=== PATIENT | male | born 1960 | race African-American/Black ===

== ENCOUNTER 2018-12-29 16:38 | Inpatient (IN) | payer OTHER ==
[2018-12-29 18:22] VITALS: BMI 27.2
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
[2018-12-29] MEDS ORDERED: hydrOXYzine PAMOATE 25 MG CAPSULE (FP) PO PRN (19:42)
[2018-12-29] MEDS ORDERED: MELATONIN 5 MG TABLETS PO PRN (19:42)
[2018-12-29] MEDS ORDERED: MAGNESIUM HYDROX 2400MG/30ML ORAL SUSPENSION 30 ML CUP PO PRN (19:42)
[2018-12-29] MEDS ORDERED: MAGNESIUM CITRATE 300 ML BOTTLE PO PRN (19:42)
[2018-12-29] MEDS ORDERED: ACETAMINOPHEN 325 MG TABLET (FP) PO PRN ×2 (19:42)
[2018-12-29] MEDS ORDERED: MAG HYDROX/AL HYDROX/SIMETH 30 ML UNIT-DOSE CUP PO PRN (19:42)
[2018-12-29] MEDS ORDERED: METHOCARBAMOL 500 MG TABLET PO PRN (19:42)
[2018-12-29] MEDS ORDERED: IBUPROFEN 400 MG TABLET (FP) PO PRN (19:42)
[2018-12-29] MEDS ORDERED: BISMUTH SUBSALICYLATE 524 MG/30 ML UD PO PRN (19:42)
[2018-12-29] MEDS ORDERED: MENTHOL/PHENOL 1 EACH UD MM PRN (19:42)
[2018-12-29] MEDS ORDERED: diazePAM 5 MG TABLET PO PRN (19:42)
[2018-12-29] MEDS ORDERED: ALBUTEROL SO4 8 GM HFA INHALER IH PRN (19:49)
[2018-12-29] MEDS: diazePAM 5 MG TABLET PO SCH (21:41)
[2018-12-29] MEDS: THIAMINE HCL 100 MG TABLET (FP) PO SCH (21:41)
[2018-12-29] MEDS: BUDESONIDE/FORMETEROL FUMARATE 80/4.5 mcg INHALER IH SCH (22:52)
[2018-12-29] MEDS: BACITRACIN/POLYMYXIN B SULFATE 15 GM TUBE TP SCH (23:38)
[2018-12-30] MEDS: diazePAM 5 MG TABLET PO SCH ×3 (06:31→22:16)
[2018-12-30] MEDS: BACITRACIN/POLYMYXIN B SULFATE 15 GM TUBE TP SCH ×2 (09:39→22:16)
[2018-12-30] MEDS: PRENATAL VITAMINS W/ FOLIC ACID TABLET (FP) PO SCH (09:39)
[2018-12-30] MEDS: BUDESONIDE/FORMETEROL FUMARATE 80/4.5 mcg INHALER IH SCH ×2 (09:40→22:16)
--- NOTE | 2018-12-30 11:26 | PN ---
S CIWA - CIWA Score Nausea/Vomitin Muscle Tremors: 2 Anxiety: 2 Agitation: 2 Paroxysmal Sweats: No Perspiration Orientation: 0-Oriented Tacttile Disturbances: 1-Very Mild Itch/Numbness Auditory Disturbances: 0-None Visual Disturbances: 0-None Headache: 2-Mild CIWA-Ar Total Score: 11 BHS Progress Note (SOAP) Subjective: alert,irritable,anxious,interrupted sleep,tremor Objective: 12/30/18 11:24 Vital Signs Temperature 97.9 F 12/30/18 09:34 Pulse Rate 78 12/30/18 09:34 Respiratory Rate 18 12/30/18 09:34 Blood Pressure 107/62 12/30/18 09:34 O2 Sat by Pulse Oximetry (%) Assessment: 12/30/18 11:26 withdrawal symptom 12/30/18 11:26 labs pending Plan: withdrawal symptom valium regimen
[2018-12-30] MEDS: THIAMINE HCL 100 MG TABLET (FP) PO SCH (22:16)
[2018-12-31] MEDS: diazePAM 5 MG TABLET PO SCH ×2 (06:45→17:56)
[2018-12-31] MEDS: PRENATAL VITAMINS W/ FOLIC ACID TABLET (FP) PO SCH (10:17)
[2018-12-31] MEDS: BACITRACIN/POLYMYXIN B SULFATE 15 GM TUBE TP SCH ×2 (10:17→22:23)
[2018-12-31] MEDS: BUDESONIDE/FORMETEROL FUMARATE 80/4.5 mcg INHALER IH SCH ×2 (10:17→22:23)
--- NOTE | 2018-12-31 11:24 | PN ---
S CIWA - CIWA Score Nausea/Vomitin-No Nausea/No Vomiting Muscle Tremors: 1-None Visible, but [place] Anxiety: 1-Mildly Anxious Agitation: 1-Slight > Activity Paroxysmal Sweats: No Perspiration Orientation: 0-Oriented Tacttile Disturbances: 0-None Auditory Disturbances: 0-None Visual Disturbances: 0-None Headache: 1-Very Mild CIWA-Ar Total Score: 4 BHS Progress Note (SOAP) Subjective: alert,irritable,anxious, Objective: 12/31/18 11:23 Vital Signs Temperature 98.2 F 12/31/18 09:47 Pulse Rate 79 12/31/18 09:47 Respiratory Rate 18 12/31/18 09:47 Blood Pressure 105/58 L 12/31/18 09:47 O2 Sat by Pulse Oximetry (%) Assessment: 12/31/18 11:23 withdrawal symptom labs pending Plan: continue detox valium regimen,labs pending,,discharge in am
[2018-12-31 14:42] LABS: HEMATOCRIT 41.4 % (35.4-49); HEMOGLOBIN 13.4 GM/dL (11.7-16.9); MCH 28.4 pg (25.7-33.7); MCHC 32.4 g/dl (32.0-35.9); MEAN CELL VOLUME 87.9 fl (80-96); MEAN PLT VOLUME 9.2 fl (7.5-11.1); PLATELET COUNT 278 K/MM3 (134-434); RBC 4.71 M/mm3 (4.00-5.60); RDW 14.4 % (11.9-15.9); WHITE BLOOD COUNT 6.8 K/mm3 (4.0-10.0)
[2018-12-31 14:56] LABS: BILIRUBIN,TOTAL 0.5 mg/dL (0.2-1); BLOOD UREA NITROGEN 10.6 mg/dL (7-18); CALCIUM 8.9 mg/dL (8.5-10.1); CREATININE 0.9 mg/dL (0.55-1.3); POTASSIUM 4.7 mmol/L (3.5-5.1); TOT PROT 6.1 g/dl (6.4-8.2)
[2018-12-31] MEDS: THIAMINE HCL 100 MG TABLET (FP) PO SCH (22:24)
[2019-01-01] MEDS ORDERED: diazePAM 5 MG TABLET PO ONE (06:00)
--- NOTE | 2019-01-01 08:59 | DS ---
[facility] Detox Discharge Summary Admission Date: 12/29/18 Discharge Date: 01/01/19 - History Present History: Alcohol Dependence - Physical Exam Results Vital Signs: Vital Signs Temperature 97.7 F 01/01/19 07:08 Pulse Rate 61 01/01/19 07:08 Respiratory Rate 18 01/01/19 07:08 Blood Pressure 100/65 01/01/19 07:08 O2 Sat by Pulse Oximetry (%) - Treatment Hospital Course: Detox Protocol Followed, Detoxed Safely, Responded well, Discharged Condition Good - Medication Discharge Medications: Ambulatory Orders Salmeterol/Fluticasone [Advair 250Mcg/50Mcg -] 1 inh IH BID #1 inh 09/29/12 Albuterol Sulfate Inhaler - [Ventolin HFA Inhaler -] 2 inh IH Q4H PRN #1 canister 04/04/14 - Diagnosis (1) Alcohol dependence Current Visit: Yes Status: Chronic (2) Asthma Current Visit: No Status: Chronic (3) COPD (chronic obstructive pulmonary disease) Current Visit: No Status: Chronic (4) Nicotine dependence Current Visit: Yes Status: Chronic - AMA Did Patient Leave Against Medical Advice: No
[2019-01-01] MEDS: BUDESONIDE/FORMETEROL FUMARATE 80/4.5 mcg INHALER IH SCH (10:19)
[2019-01-01] MEDS: PRENATAL VITAMINS W/ FOLIC ACID TABLET (FP) PO SCH (10:19)
[2019-01-01] MEDS: BACITRACIN/POLYMYXIN B SULFATE 15 GM TUBE TP SCH (10:19)
[2019-01-01 17:06] VITALS: BP 131/82; PULSE 73; TEMP 98.1
== END 2019-01-01 17:08 | disposition other institution (70) | DRG 775 ==
LOC: YASAS 16:38 → Y6N 20:37
PROVIDERS: ADMIT Allergy & Immunology; ATTEND Allergy & Immunology
PROC: HZ2ZZZZ Detoxification Services for Substance Abuse Treatment (ICD-10-PCS; principal; 2018-12-29)
DX: F10.230 Alcohol dependence with withdrawal, uncomplicated (principal); F12.20 Cannabis dependence, uncomplicated; F17.210 Nicotine dependence, cigarettes, uncomplicated; J44.9 Chronic obstructive pulmonary disease, unspecified; J45.998 Other asthma; Z87.820 Personal history of traumatic brain injury; Z88.0 Allergy status to penicillin; Z91.013 Allergy to seafood
CPT/HCPCS: 36415; 80053; 85027; 86593

== ENCOUNTER 2019-01-01 17:16 | Inpatient (IN) | payer OTHER ==
[2019-01-01] MEDS ORDERED: MAGNESIUM HYDROX 2400MG/30ML ORAL SUSPENSION 30 ML CUP PO PRN (19:34)
[2019-01-01] MEDS ORDERED: hydrOXYzine PAMOATE 50 MG CAPSULE (FP) PO PRN (19:34)
[2019-01-01] MEDS ORDERED: P-EPHED 60MG/TRIPROLIDI 2.5MG TABLET PO PRN (19:34)
[2019-01-01] MEDS ORDERED: MAGNESIUM CITRATE 300 ML BOTTLE PO PRN (19:34)
[2019-01-01] MEDS ORDERED: IBUPROFEN 400 MG TABLET (FP) PO PRN (19:34)
[2019-01-01] MEDS ORDERED: guaiFENesin 200 MG/10 ML 10 ML UNIT-DOSE CUPS PO PRN (19:34)
[2019-01-01] MEDS ORDERED: MENTHOL/PHENOL 1 EACH UD MM PRN (19:34)
[2019-01-01] MEDS ORDERED: MAG HYDROX/AL HYDROX/SIMETH 30 ML UNIT-DOSE CUP PO PRN (19:34)
[2019-01-01] MEDS ORDERED: LOPERAMIDE HCL 2 MG CAPSULE PO PRN (19:34)
[2019-01-01] MEDS: THIAMINE HCL 100 MG TABLET (FP) PO SCH (21:01)
[2019-01-01] MEDS ORDERED: MELATONIN 5 MG TABLETS PO PRN (22:00)
[2019-01-02] MEDS: PRENATAL VITAMINS W/ FOLIC ACID TABLET (FP) PO SCH (09:50)
[2019-01-02] MEDS: THIAMINE HCL 100 MG TABLET (FP) PO SCH (21:08)
[2019-01-03] MEDS: ACETAMINOPHEN 325 MG TABLET (FP) PO PRN (09:30)
[2019-01-03] MEDS: PRENATAL VITAMINS W/ FOLIC ACID TABLET (FP) PO SCH (09:30)
[2019-01-03] MEDS: THIAMINE HCL 100 MG TABLET (FP) PO SCH (21:04)
[2019-01-04] MEDS: PRENATAL VITAMINS W/ FOLIC ACID TABLET (FP) PO SCH (10:25)
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
[2019-01-04] MEDS: THIAMINE HCL 100 MG TABLET (FP) PO SCH (21:04)
[2019-01-05] MEDS: PRENATAL VITAMINS W/ FOLIC ACID TABLET (FP) PO SCH (10:36)
[2019-01-05] MEDS: THIAMINE HCL 100 MG TABLET (FP) PO SCH (21:03)
[2019-01-06] MEDS: PRENATAL VITAMINS W/ FOLIC ACID TABLET (FP) PO SCH (10:01)
[2019-01-06] MEDS: THIAMINE HCL 100 MG TABLET (FP) PO SCH (21:05)
[2019-01-07] MEDS: ACETAMINOPHEN 325 MG TABLET (FP) PO PRN (10:07)
[2019-01-07] MEDS: PRENATAL VITAMINS W/ FOLIC ACID TABLET (FP) PO SCH (10:07)
[2019-01-07] MEDS: THIAMINE HCL 100 MG TABLET (FP) PO SCH (21:01)
[2019-01-08] MEDS: ACETAMINOPHEN 325 MG TABLET (FP) PO PRN (09:41)
[2019-01-08] MEDS: PRENATAL VITAMINS W/ FOLIC ACID TABLET (FP) PO SCH (09:41)
[2019-01-08] MEDS: THIAMINE HCL 100 MG TABLET (FP) PO SCH (21:04)
[2019-01-09] MEDS: PRENATAL VITAMINS W/ FOLIC ACID TABLET (FP) PO SCH (10:27)
[2019-01-09] MEDS: THIAMINE HCL 100 MG TABLET (FP) PO SCH (21:05)
[2019-01-10] MEDS: PRENATAL VITAMINS W/ FOLIC ACID TABLET (FP) PO SCH (10:00)
[2019-01-10] MEDS: ACETAMINOPHEN 325 MG TABLET (FP) PO PRN (10:00)
[2019-01-10] MEDS: THIAMINE HCL 100 MG TABLET (FP) PO SCH (21:02)
[2019-01-11] MEDS: PRENATAL VITAMINS W/ FOLIC ACID TABLET (FP) PO SCH (10:13)
[2019-01-11] MEDS: ACETAMINOPHEN 325 MG TABLET (FP) PO PRN (10:14)
[2019-01-11] MEDS: THIAMINE HCL 100 MG TABLET (FP) PO SCH (21:05)
[2019-01-12 06:57] VITALS: BP 99/65; PULSE 68; TEMP 98
[2019-01-12] MEDS: PRENATAL VITAMINS W/ FOLIC ACID TABLET (FP) PO SCH (09:57)
[2019-01-12] MEDS: ACETAMINOPHEN 325 MG TABLET (FP) PO PRN (09:59)
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
[2019-01-12] MEDS ORDERED: ALBUTEROL SO4 8 GM HFA INHALER IH PRN (13:16)
[2019-01-12] MEDS: BUDESONIDE/FORMETEROL FUMARATE 80/4.5 mcg INHALER IH SCH (22:04)
[2019-01-12] MEDS: THIAMINE HCL 100 MG TABLET (FP) PO SCH (22:04)
--- NOTE | 2019-01-13 09:21 | PN ---
[facility] Progress Note Note: Pt left the unit unescorted before I had a chance to see him. d/c order and summary done yesterday
[2019-01-13] MEDS: PRENATAL VITAMINS W/ FOLIC ACID TABLET (FP) PO SCH (10:48)
[2019-01-13] MEDS: BUDESONIDE/FORMETEROL FUMARATE 80/4.5 mcg INHALER IH SCH (10:49)
== END 2019-01-13 08:45 | disposition home or self-care (01) | DRG 772 ==
LOC: YASAS 17:16 → Y5N 17:18
PROVIDERS: ADMIT Neuromusculoskeletal Medicine & OMM; ATTEND Neuromusculoskeletal Medicine & OMM
PROC: HZ42ZZZ Group Counseling for Substance Abuse Treatment, Cognitive-Behavioral (ICD-10-PCS; principal; 2019-01-01)
DX: F10.20 Alcohol dependence, uncomplicated (principal); F17.210 Nicotine dependence, cigarettes, uncomplicated; J44.9 Chronic obstructive pulmonary disease, unspecified; J45.998 Other asthma; Z87.19 Personal history of other diseases of the digestive system; Z88.0 Allergy status to penicillin; Z91.018 Allergy to other foods

== ENCOUNTER 2019-01-25 10:32 | Inpatient (IN) | payer OTHER ==
[2019-01-25 11:23] VITALS: BMI 27.5
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
[2019-01-25] MEDS ORDERED: MAG HYDROX/AL HYDROX/SIMETH 30 ML UNIT-DOSE CUP PO PRN (11:49)
[2019-01-25] MEDS ORDERED: MELATONIN 5 MG TABLETS PO PRN (11:49)
[2019-01-25] MEDS ORDERED: hydrOXYzine PAMOATE 25 MG CAPSULE (FP) PO PRN (11:49)
[2019-01-25] MEDS ORDERED: MAGNESIUM HYDROX 2400MG/30ML ORAL SUSPENSION 30 ML CUP PO PRN (11:49)
[2019-01-25] MEDS ORDERED: ACETAMINOPHEN 325 MG TABLET (FP) PO PRN ×2 (11:49)
[2019-01-25] MEDS ORDERED: BISMUTH SUBSALICYLATE 524 MG/30 ML UD PO PRN (11:49)
[2019-01-25] MEDS ORDERED: MENTHOL/PHENOL 1 EACH UD MM PRN (11:49)
[2019-01-25] MEDS ORDERED: MAGNESIUM CITRATE 300 ML BOTTLE PO PRN (11:49)
[2019-01-25] MEDS ORDERED: IBUPROFEN 400 MG TABLET (FP) PO PRN (11:49)
[2019-01-25] MEDS ORDERED: METHOCARBAMOL 500 MG TABLET PO PRN (11:49)
[2019-01-25] MEDS ORDERED: LORazepam 1 MG TABLET PO PRN (11:49)
[2019-01-25] MEDS ORDERED: ALBUTEROL SO4 8 GM HFA INHALER IH PRN (11:51)
[2019-01-25] MEDS: LORazepam 2 MG TABLET PO SCH ×3 (12:35→22:34)
[2019-01-25 15:50] LABS: ALBUMIN 3.7 g/dl (3.4-5.0); BILIRUBIN,TOTAL 0.6 mg/dL (0.2-1); BLOOD UREA NITROGEN 15.5 mg/dL (7-18); CALCIUM 8.4 mg/dL (8.5-10.1); CREATININE 1.2 mg/dL (0.55-1.3); HEMATOCRIT 41.5 % (35.4-49); HEMOGLOBIN 13.6 GM/dL (11.7-16.9); MCH 28.3 pg (25.7-33.7); MCHC 32.7 g/dl (32.0-35.9); MEAN CELL VOLUME 86.5 fl (80-96); MEAN PLT VOLUME 9.6 fl (7.5-11.1); PLATELET COUNT 215 K/MM3 (134-434); POTASSIUM 4.1 mmol/L (3.5-5.1); RDW 14.8 % (11.9-15.9); TOT PROT 6.9 g/dl (6.4-8.2); WHITE BLOOD COUNT 5.8 K/mm3 (4.0-10.0)
[2019-01-25] MEDS: THIAMINE HCL 100 MG TABLET (FP) PO SCH (22:34)
[2019-01-25] MEDS: BUDESONIDE/FORMETEROL FUMARATE 80/4.5 mcg INHALER IH SCH (22:37)
[2019-01-26] MEDS: LORazepam 2 MG TABLET PO SCH ×4 (06:32→22:08)
[2019-01-26] MEDS: BUDESONIDE/FORMETEROL FUMARATE 80/4.5 mcg INHALER IH SCH ×2 (11:15→22:09)
[2019-01-26] MEDS: PRENATAL VITAMINS W/ FOLIC ACID TABLET (FP) PO SCH (11:15)
[2019-01-26] MEDS: NICOTINE 7 MG/24 HOURS TOPICAL PATCH TD SCH (11:15)
--- NOTE | 2019-01-26 11:28 | PN ---
S CIWA - CIWA Score Nausea/Vomitin-No Nausea/No Vomiting Muscle Tremors: 3 Anxiety: 2 Agitation: 2 Paroxysmal Sweats: 3 Orientation: 0-Oriented Tacttile Disturbances: 0-None Auditory Disturbances: 0-None Visual Disturbances: 0-None Headache: 0-None Present CIWA-Ar Total Score: 10 S Progress Note (SOAP) Subjective: tired sweats body aches interrupted sleep Objective: 01/26/19 11:27 Vital Signs Temperature 97.7 F 01/26/19 09:22 Pulse Rate 66 01/26/19 09:22 Respiratory Rate 19 01/26/19 09:22 Blood Pressure 131/81 01/26/19 09:22 O2 Sat by Pulse Oximetry (%) Laboratory Tests 01/25/19 01/25/19 01/25/19 12:00 12:00 12:00 WBC 5.8 RBC 4.80 Hgb 13.6 Hct 41.5 MCV 86.5 MCH 28.3 MCHC 32.7 RDW 14.8 Plt Count 215 D MPV 9.6 Sodium 143 Potassium 4.1 Chloride 109 H Carbon Dioxide 25 Anion Gap 10 BUN 15.5 Creatinine 1.2 Est GFR (CKD-EPI)AfAm 76.25 Est GFR (CKD-EPI)NonAf 65.79 Random Glucose 89 Calcium 8.4 L Total Bilirubin 0.6 AST 24 ALT 29 Alkaline Phosphatase 72 Total Protein 6.9 Albumin 3.7 RPR Titer Nonreactive aaox3 ambulating no acute distress Assessment: 01/26/19 11:27 withdrawal sx Plan: continue detox increase fluids
[2019-01-26] MEDS: THIAMINE HCL 100 MG TABLET (FP) PO SCH (22:08)
[2019-01-27] MEDS: LORazepam 1 MG TABLET PO SCH ×4 (06:32→22:15)
--- NOTE | 2019-01-27 10:12 | PN ---
S CIWA - CIWA Score Nausea/Vomitin-No Nausea/No Vomiting Muscle Tremors: 3 Anxiety: 1-Mildly Anxious Agitation: 2 Paroxysmal Sweats: 1-Minimal Palms Moist Orientation: 0-Oriented Tacttile Disturbances: 0-None Auditory Disturbances: 0-None Visual Disturbances: 0-None Headache: 0-None Present CIWA-Ar Total Score: 7 BHS Progress Note (SOAP) Subjective: sweats mild shakes interrupted sleep Objective: 01/27/19 10:11 Vital Signs Temperature 97.0 F L 01/27/19 09:29 Pulse Rate 69 01/27/19 09:29 Respiratory Rate 18 01/27/19 09:29 Blood Pressure 99/57 L 01/27/19 09:29 O2 Sat by Pulse Oximetry (%) Laboratory Tests 01/25/19 01/25/19 01/25/19 12:00 12:00 12:00 WBC 5.8 RBC 4.80 Hgb 13.6 Hct 41.5 MCV 86.5 MCH 28.3 MCHC 32.7 RDW 14.8 Plt Count 215 D MPV 9.6 Sodium 143 Potassium 4.1 Chloride 109 H Carbon Dioxide 25 Anion Gap 10 BUN 15.5 Creatinine 1.2 Est GFR (CKD-EPI)AfAm 76.25 Est GFR (CKD-EPI)NonAf 65.79 Random Glucose 89 Calcium 8.4 L Total Bilirubin 0.6 AST 24 ALT 29 Alkaline Phosphatase 72 Total Protein 6.9 Albumin 3.7 RPR Titer Nonreactive aaox3 ambulating no acute distress Assessment: 01/27/19 10:12 mild withdrawals Plan: continue detox increase fluids
[2019-01-27] MEDS: NICOTINE 7 MG/24 HOURS TOPICAL PATCH TD SCH (10:53)
[2019-01-27] MEDS: PRENATAL VITAMINS W/ FOLIC ACID TABLET (FP) PO SCH (10:54)
[2019-01-27] MEDS: BUDESONIDE/FORMETEROL FUMARATE 80/4.5 mcg INHALER IH SCH ×2 (10:54→22:15)
[2019-01-27] MEDS: THIAMINE HCL 100 MG TABLET (FP) PO SCH (22:14)
[2019-01-28] MEDS ORDERED: LORazepam 0.5 MG TABLET PO PRN
[2019-01-28] MEDS: LORazepam 0.5 MG TABLET PO SCH ×4 (06:47→22:18)
--- NOTE | 2019-01-28 09:55 | PN ---
S CIWA - CIWA Score Nausea/Vomitin-No Nausea/No Vomiting Muscle Tremors: None Anxiety: 1-Mildly Anxious Agitation: 1-Slight > Activity Paroxysmal Sweats: No Perspiration Orientation: 0-Oriented Tacttile Disturbances: 0-None Auditory Disturbances: 0-None Visual Disturbances: 0-None Headache: 0-None Present CIWA-Ar Total Score: 2 BHS Progress Note (SOAP) Subjective: feeling better little anxiety Objective: 01/28/19 09:51 Vital Signs Temperature 97.0 F L 01/28/19 09:39 Pulse Rate 72 01/28/19 09:39 Respiratory Rate 18 01/28/19 09:39 Blood Pressure 128/82 01/28/19 09:39 O2 Sat by Pulse Oximetry (%) aaox3 ambulating no acute distress Assessment: 01/28/19 09:55 mild withdrawals Plan: continue detox d/c in am
[2019-01-28] MEDS: PRENATAL VITAMINS W/ FOLIC ACID TABLET (FP) PO SCH (12:01)
[2019-01-28] MEDS: NICOTINE 7 MG/24 HOURS TOPICAL PATCH TD SCH (12:03)
[2019-01-28] MEDS: BUDESONIDE/FORMETEROL FUMARATE 80/4.5 mcg INHALER IH SCH ×2 (12:06→22:18)
[2019-01-28] MEDS: THIAMINE HCL 100 MG TABLET (FP) PO SCH (22:18)
[2019-01-29] MEDS ORDERED: LORazepam 0.5 MG TABLET PO ONE (05:00)
--- NOTE | 2019-01-29 09:34 | DS ---
[facility] Detox Discharge Summary Admission Date: 01/25/19 Discharge Date: 01/29/19 - History Present History: Alcohol Dependence - Physical Exam Results Vital Signs: Vital Signs Temperature 97.9 F 01/29/19 06:43 Pulse Rate 67 01/29/19 06:43 Respiratory Rate 18 01/29/19 06:43 Blood Pressure 80/43 L 01/29/19 06:43 O2 Sat by Pulse Oximetry (%) Pertinent Admission Physical Exam Findings: Vital Signs Temperature 97.9 F 01/29/19 06:43 Pulse Rate 67 01/29/19 06:43 Respiratory Rate 18 01/29/19 06:43 Blood Pressure 80/43 L 01/29/19 06:43 O2 Sat by Pulse Oximetry (%) Laboratory Tests 01/25/19 01/25/19 01/25/19 12:00 12:00 12:00 WBC 5.8 RBC 4.80 Hgb 13.6 Hct 41.5 MCV 86.5 MCH 28.3 MCHC 32.7 RDW 14.8 Plt Count 215 D MPV 9.6 Sodium 143 Potassium 4.1 Chloride 109 H Carbon Dioxide 25 Anion Gap 10 BUN 15.5 Creatinine 1.2 Est GFR (CKD-EPI)AfAm 76.25 Est GFR (CKD-EPI)NonAf 65.79 Random Glucose 89 Calcium 8.4 L Total Bilirubin 0.6 AST 24 ALT 29 Alkaline Phosphatase 72 Total Protein 6.9 Albumin 3.7 RPR Titer Nonreactive aaox3 ambulating no acute distress - Treatment Hospital Course: Detox Protocol Followed, Detoxed Safely, Responded well, Discharged Condition Good, Rehab Referral Accepted Patient has Accepted a Rehab Referral to: pt referred to [facility] rehab - Medication Discharge Medications: Ambulatory Orders Albuterol Sulfate Inhaler - [Ventolin HFA Inhaler -] 2 inh IH Q4H PRN #1 canister 01/12/19 Budesonide/Formeterol Fumarate [SYMBICORT 80/4.5mcg -] 2 puff IH BID #1 inhaler 01/12/19 - Diagnosis (1) Alcohol dependence with uncomplicated withdrawal Current Visit: Yes Status: Chronic (2) COPD (chronic obstructive pulmonary disease) Current Visit: Yes Status: Chronic Qualifiers: Emphysema type: unspecified (3) H/O hemorrhoids Current Visit: Yes Status: Chronic (4) Nicotine dependence Current Visit: Yes Status: Chronic Qualifiers: Nicotine product type: cigarettes Substance use status: uncomplicated Qualified Code(s): F17.210 - Nicotine dependence, cigarettes, uncomplicated (5) Rash/skin eruption Current Visit: No Status: Acute (6) Asthma Current Visit: Yes Status: Chronic Qualifiers: Asthma severity: mild Asthma persistence: unspecified Asthma complication type: unspecified Qualified Code(s): J45.909 - Unspecified asthma , uncomplicated - AMA Did Patient Leave Against Medical Advice: No
[2019-01-29 10:28] VITALS: BP 105/66; PULSE 83; TEMP 98.2
[2019-01-29] MEDS: BUDESONIDE/FORMETEROL FUMARATE 80/4.5 mcg INHALER IH SCH (11:06)
[2019-01-29] MEDS: PRENATAL VITAMINS W/ FOLIC ACID TABLET (FP) PO SCH (11:06)
[2019-01-29] MEDS: NICOTINE 7 MG/24 HOURS TOPICAL PATCH TD SCH (11:06)
== END 2019-01-29 12:26 | disposition other institution (70) | DRG 775 ==
LOC: YASAS 10:32 → Y6N 12:01
PROVIDERS: ADMIT Allergy & Immunology; ATTEND Allergy & Immunology
PROC: HZ2ZZZZ Detoxification Services for Substance Abuse Treatment (ICD-10-PCS; principal; 2019-01-25)
DX: F10.230 Alcohol dependence with withdrawal, uncomplicated (principal); F17.210 Nicotine dependence, cigarettes, uncomplicated; J44.9 Chronic obstructive pulmonary disease, unspecified; R21 Rash and other nonspecific skin eruption; Z88.0 Allergy status to penicillin; Z91.018 Allergy to other foods
CPT/HCPCS: 36415; 80053; 85027; 86593

== ENCOUNTER 2019-01-29 12:43 | Inpatient (IN) | payer OTHER ==
[2019-01-29] MEDS ORDERED: COLLOIDAL OATMEAL 1 BAR EACH TP PRN (13:52)
[2019-01-29] MEDS ORDERED: guaiFENesin 200 MG/10 ML 10 ML UNIT-DOSE CUPS PO PRN (14:43)
[2019-01-29] MEDS ORDERED: MAGNESIUM HYDROX 2400MG/30ML ORAL SUSPENSION 30 ML CUP PO PRN (14:43)
[2019-01-29] MEDS ORDERED: LOPERAMIDE HCL 2 MG CAPSULE PO PRN (14:43)
[2019-01-29] MEDS ORDERED: MENTHOL/PHENOL 1 EACH UD MM PRN (14:43)
[2019-01-29] MEDS ORDERED: MAG HYDROX/AL HYDROX/SIMETH 30 ML UNIT-DOSE CUP PO PRN (14:43)
[2019-01-29] MEDS ORDERED: MAGNESIUM CITRATE 300 ML BOTTLE PO PRN (14:43)
[2019-01-29] MEDS ORDERED: ACETAMINOPHEN 325 MG TABLET (FP) PO PRN (14:43)
[2019-01-29] MEDS ORDERED: P-EPHED 60MG/TRIPROLIDI 2.5MG TABLET PO PRN (14:43)
[2019-01-29] MEDS ORDERED: hydrOXYzine PAMOATE 50 MG CAPSULE (FP) PO PRN (14:43)
[2019-01-29] MEDS ORDERED: IBUPROFEN 400 MG TABLET (FP) PO PRN (14:43)
[2019-01-29] MEDS ORDERED: ALBUTEROL SO4 8 GM HFA INHALER IH PRN (14:44)
--- NOTE | 2019-01-29 14:44 | HP ---
[facility] Rehab Assess/Revision - Admission History Admitted to Rehab from: [address] - Vital signs Vital Signs: Vital Signs Period Temp Pulse Resp BP Sys/Hartmann Pulse Ox Last 24 Hr 97.7 F 77 18 103/68 - Findings Detox History & Physical reviewed: Yes Concur with findings: Yes Inpatient Rehab Admission - Rehab Decision to Admit Inpatient rehab admission?: Yes - Initial Determination Are CD services needed?: Yes Free of communicable disease: Yes Not in need of hospitalization: Yes - Rehab Admission Criteria Previous failed treatment: Yes Poor recovery environment: Yes Comorbidities: Yes Lacks judgement: Yes Patient is meeting Inpatient Rehab admission criteria:: Yes
--- NOTE | 2019-01-29 15:25 | PN ---
[facility] Progress Note Note: Patient transferred to rehab from detox. Last 3 admissions reviewed, home medications reviewed, orders reviewed. No major medical issues or psychiatric issues in previous admissions. All orders complete. Patient requested aveeno soap, which was ordered. Continue substance abuse treatment. Vital Signs Period Temp Pulse Resp BP Sys/Hartmann Pulse Ox Last 24 Hr 97.7 F 77 18 103/68
[2019-01-29] MEDS: THIAMINE HCL 100 MG TABLET (FP) PO SCH (21:38)
[2019-01-29] MEDS: FORMETEROL FUMARATE IH SCH (21:38)
[2019-01-29] MEDS: BUDESONIDE IH SCH (21:38)
[2019-01-29] MEDS ORDERED: MELATONIN 5 MG TABLETS PO PRN (22:00)
[2019-01-30] MEDS: BUDESONIDE IH SCH ×2 (11:49→21:48)
[2019-01-30] MEDS: PRENATAL VITAMINS W/ FOLIC ACID TABLET (FP) PO SCH (11:49)
[2019-01-30] MEDS: FORMETEROL FUMARATE IH SCH ×2 (11:49→21:48)
[2019-01-30] MEDS: NICOTINE 21 MG/24 HOURS TOPICAL PATCH TD SCH (11:49)
[2019-01-30] MEDS: THIAMINE HCL 100 MG TABLET (FP) PO SCH (21:48)
[2019-01-31] MEDS: PRENATAL VITAMINS W/ FOLIC ACID TABLET (FP) PO SCH (11:55)
[2019-01-31] MEDS: NICOTINE 21 MG/24 HOURS TOPICAL PATCH TD SCH (11:56)
[2019-01-31] MEDS: FORMETEROL FUMARATE IH SCH ×2 (11:56→21:32)
[2019-01-31] MEDS: BUDESONIDE IH SCH ×2 (11:56→21:32)
[2019-01-31] MEDS: THIAMINE HCL 100 MG TABLET (FP) PO SCH (21:32)
[2019-02-01] MEDS: NICOTINE 21 MG/24 HOURS TOPICAL PATCH TD SCH (09:56)
[2019-02-01] MEDS: PRENATAL VITAMINS W/ FOLIC ACID TABLET (FP) PO SCH (09:56)
[2019-02-01] MEDS: BUDESONIDE IH SCH ×2 (09:57→22:18)
[2019-02-01] MEDS: FORMETEROL FUMARATE IH SCH ×2 (09:57→22:18)
[2019-02-01] MEDS: THIAMINE HCL 100 MG TABLET (FP) PO SCH (22:18)
[2019-02-02] MEDS: NICOTINE 21 MG/24 HOURS TOPICAL PATCH TD SCH (10:42)
[2019-02-02] MEDS: PRENATAL VITAMINS W/ FOLIC ACID TABLET (FP) PO SCH (10:42)
[2019-02-02] MEDS: BUDESONIDE IH SCH ×2 (10:42→21:04)
[2019-02-02] MEDS: FORMETEROL FUMARATE IH SCH ×2 (10:42→21:04)
[2019-02-02] MEDS: THIAMINE HCL 100 MG TABLET (FP) PO SCH (21:04)
[2019-02-03] MEDS: FORMETEROL FUMARATE IH SCH ×2 (10:17→21:25)
[2019-02-03] MEDS: PRENATAL VITAMINS W/ FOLIC ACID TABLET (FP) PO SCH (10:17)
[2019-02-03] MEDS: NICOTINE 21 MG/24 HOURS TOPICAL PATCH TD SCH (10:17)
[2019-02-03] MEDS: BUDESONIDE IH SCH ×2 (10:17→21:25)
[2019-02-03] MEDS: THIAMINE HCL 100 MG TABLET (FP) PO SCH (21:25)
[2019-02-04] MEDS: NICOTINE 21 MG/24 HOURS TOPICAL PATCH TD SCH (09:51)
[2019-02-04] MEDS: FORMETEROL FUMARATE IH SCH ×2 (09:52→21:02)
[2019-02-04] MEDS: BUDESONIDE IH SCH ×2 (09:52→21:02)
[2019-02-04] MEDS: PRENATAL VITAMINS W/ FOLIC ACID TABLET (FP) PO SCH (09:52)
[2019-02-04] MEDS: THIAMINE HCL 100 MG TABLET (FP) PO SCH (21:02)
[2019-02-05] MEDS: PRENATAL VITAMINS W/ FOLIC ACID TABLET (FP) PO SCH (10:31)
[2019-02-05] MEDS: FORMETEROL FUMARATE IH SCH ×2 (10:31→21:47)
[2019-02-05] MEDS: NICOTINE 21 MG/24 HOURS TOPICAL PATCH TD SCH (10:31)
[2019-02-05] MEDS: BUDESONIDE IH SCH ×2 (10:31→21:47)
[2019-02-05] MEDS: THIAMINE HCL 100 MG TABLET (FP) PO SCH (21:47)
[2019-02-06] MEDS: NICOTINE 21 MG/24 HOURS TOPICAL PATCH TD SCH (10:27)
[2019-02-06] MEDS: BUDESONIDE IH SCH ×2 (10:27→22:10)
[2019-02-06] MEDS: FORMETEROL FUMARATE IH SCH ×2 (10:27→22:10)
[2019-02-06] MEDS: PRENATAL VITAMINS W/ FOLIC ACID TABLET (FP) PO SCH (10:27)
[2019-02-06] MEDS: THIAMINE HCL 100 MG TABLET (FP) PO SCH (22:10)
[2019-02-07] MEDS: PRENATAL VITAMINS W/ FOLIC ACID TABLET (FP) PO SCH (10:07)
[2019-02-07] MEDS: BUDESONIDE IH SCH ×2 (10:07→23:35)
[2019-02-07] MEDS: FORMETEROL FUMARATE IH SCH ×2 (10:07→23:35)
[2019-02-07] MEDS: NICOTINE 21 MG/24 HOURS TOPICAL PATCH TD SCH (10:07)
[2019-02-07] MEDS: THIAMINE HCL 100 MG TABLET (FP) PO SCH (23:35)
[2019-02-08] MEDS: NICOTINE 21 MG/24 HOURS TOPICAL PATCH TD SCH (10:10)
[2019-02-08] MEDS: PRENATAL VITAMINS W/ FOLIC ACID TABLET (FP) PO SCH (10:10)
[2019-02-08] MEDS: FORMETEROL FUMARATE IH SCH ×2 (10:11→21:25)
[2019-02-08] MEDS: BUDESONIDE IH SCH ×2 (10:11→21:25)
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
[2019-02-08] MEDS: THIAMINE HCL 100 MG TABLET (FP) PO SCH (21:25)
[2019-02-09 06:03] VITALS: BP 118/65; PULSE 69; TEMP 98
== END 2019-02-09 08:47 | disposition home or self-care (01) | DRG 772 ==
LOC: YASAS 12:43 → Y3W 12:45
PROVIDERS: ADMIT Neuromusculoskeletal Medicine & OMM; ATTEND Neuromusculoskeletal Medicine & OMM
PROC: HZ42ZZZ Group Counseling for Substance Abuse Treatment, Cognitive-Behavioral (ICD-10-PCS; principal; 2019-01-29)
DX: F10.20 Alcohol dependence, uncomplicated (principal); F17.210 Nicotine dependence, cigarettes, uncomplicated; J44.9 Chronic obstructive pulmonary disease, unspecified; Z88.0 Allergy status to penicillin; Z91.018 Allergy to other foods

== ENCOUNTER 2019-03-02 10:47 | Inpatient (IN) | payer OTHER ==
[2019-03-02 11:34] VITALS: BMI 27.2
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
[2019-03-02] MEDS ORDERED: BISMUTH SUBSALICYLATE 262 MG/15 ML BTL PO PRN (14:23)
[2019-03-02] MEDS ORDERED: MELATONIN 5 MG TABLETS PO PRN (14:23)
[2019-03-02] MEDS ORDERED: MAGNESIUM HYDROX 2400MG/30ML ORAL SUSPENSION 30 ML CUP PO PRN (14:23)
[2019-03-02] MEDS ORDERED: hydrOXYzine PAMOATE 25 MG CAPSULE (FP) PO PRN (14:23)
[2019-03-02] MEDS ORDERED: chlordiazePOXIDE HCL 10 MG CAPSULE PO PRN (14:23)
[2019-03-02] MEDS ORDERED: MENTHOL/PHENOL 1 EACH UD MM PRN (14:23)
[2019-03-02] MEDS ORDERED: IBUPROFEN 400 MG TABLET (FP) PO PRN (14:23)
[2019-03-02] MEDS ORDERED: MAG HYDROX/AL HYDROX/SIMETH 30 ML UNIT-DOSE CUP PO PRN (14:23)
[2019-03-02] MEDS ORDERED: MAGNESIUM CITRATE 300 ML BOTTLE PO PRN (14:23)
[2019-03-02] MEDS ORDERED: ACETAMINOPHEN 325 MG TABLET (FP) PO PRN ×2 (14:23)
[2019-03-02] MEDS ORDERED: ALBUTEROL SO4 HFA INHALER IH PRN (14:25)
--- NOTE | 2019-03-02 14:25 | PN ---
Teaching Attending Note Name of Resident: Brigitte Sanderson ATTENDING PHYSICIAN STATEMENT I saw and evaluated the patient. I reviewed the resident's note and discussed the case with the resident. I agree with the resident's findings and plan as documented. SUBJECTIVE: 58 y.o. male here requesting etoh detox , reports binge- drinking 1 -4 pints liquor, latest use this morning. Denies seizures , reports blackouts, endorses tremors if not drinking . cannabis : on weekends tobacco : 02/20 ppd x 40 yrs PMHX : COPD , brain surgery for ? SAH s/p trauma 5-6 yrs ago OBJECTIVE: wnwd , mild UE tremors Vital Signs - 24 hr 03/02/19 11:31 Temperature 100.4 F H Pulse Rate 106 H Respiratory 18 Rate Blood Pressure 106/62 ASSESSMENT AND PLAN: Alcohol dependence - Librium detox . Smoking cessation counseling .
[2019-03-02] MEDS: chlordiazePOXIDE HCL 25 MG CAPSULE PO SCH ×2 (15:38→22:18)
[2019-03-02] MEDS: BUDESONIDE/FORMETEROL FUMARATE 80/4.5 mcg INHALER IH SCH (22:18)
[2019-03-02] MEDS: THIAMINE HCL 100 MG TABLET (FP) PO SCH (22:18)
[2019-03-03] MEDS: chlordiazePOXIDE HCL 25 MG CAPSULE PO SCH ×3 (06:38→22:36)
[2019-03-03 09:43] LABS: HEMATOCRIT 37.6 % (35.4-49); HEMOGLOBIN 12.4 GM/dL (11.7-16.9); MCH 27.3 pg (25.7-33.7); MCHC 33.1 g/dl (32.0-35.9); MEAN CELL VOLUME 82.6 fl (80-96); MEAN PLT VOLUME 9.4 fl (7.5-11.1); PLATELET COUNT 176 K/MM3 (134-434); RBC 4.55 M/mm3 (4.00-5.60); RDW 14.8 % (11.9-15.9); WHITE BLOOD COUNT 8.5 K/mm3 (4.0-10.0)
[2019-03-03] MEDS: PRENATAL VITAMINS W/ FOLIC ACID TABLET (FP) PO SCH (09:56)
[2019-03-03] MEDS: NICOTINE 7 MG/24 HOURS TOPICAL PATCH TD SCH (09:57)
[2019-03-03] MEDS: BUDESONIDE/FORMETEROL FUMARATE 80/4.5 mcg INHALER IH SCH ×2 (09:57→22:36)
[2019-03-03 09:58] LABS: BILIRUBIN,TOTAL 1.7 mg/dL (0.2-1); BLOOD UREA NITROGEN 10.3 mg/dL (7-18); CALCIUM 8.5 mg/dL (8.5-10.1); CREATININE 0.9 mg/dL (0.55-1.3); POTASSIUM 3.5 mmol/L (3.5-5.1)
--- NOTE | 2019-03-03 11:44 | PN ---
S CIWA - CIWA Score Nausea/Vomitin Muscle Tremors: 2 Anxiety: 2 Agitation: 2 Paroxysmal Sweats: No Perspiration Orientation: 0-Oriented Tacttile Disturbances: 1-Very Mild Itch/Numbness Auditory Disturbances: 0-None Visual Disturbances: 0-None Headache: 2-Mild CIWA-Ar Total Score: 11 S Progress Note (SOAP) Subjective: alert,irritable,anxious,interrupted sleep,tremor Objective: 03/03/19 11:43 Last Vital Signs Temp Pulse Resp BP Pulse Ox 99.0 F 87 18 104/67 03/03/19 09:14 03/03/19 09:14 03/03/19 09:14 03/03/19 09:14 03/03/19 11:43 03/03/19 03/03/19 08:10 08:10 WBC 8.5 RBC 4.55 Hgb 12.4 Hct 37.6 MCV 82.6 MCHC 33.1 RDW 14.8 Plt Count 176 Sodium 140 Potassium 3.5 Chloride 104 Carbon Dioxide 32 Anion Gap 5 L BUN 10.3 Creatinine 0.9 labs pending Assessment: 03/03/19 11:43 withdrawal symptom Plan: continue detox librium regimen
[2019-03-03] MEDS: THIAMINE HCL 100 MG TABLET (FP) PO SCH (22:36)
[2019-03-04] MEDS: chlordiazePOXIDE 5 MG CAPSULE PO SCH ×3 (06:25→22:07)
[2019-03-04] MEDS: PRENATAL VITAMINS W/ FOLIC ACID TABLET (FP) PO SCH (10:34)
[2019-03-04] MEDS: BUDESONIDE/FORMETEROL FUMARATE 80/4.5 mcg INHALER IH SCH ×2 (10:35→22:08)
[2019-03-04] MEDS: NICOTINE 7 MG/24 HOURS TOPICAL PATCH TD SCH (10:36)
--- NOTE | 2019-03-04 11:19 | PN ---
[facility] CIWA - CIWA Score Nausea/Vomitin-Mild Nausea/No Vomiting Muscle Tremors: 5 Anxiety: 3 Agitation: 1-Slight > Activity Paroxysmal Sweats: 2 Orientation: 0-Oriented Tacttile Disturbances: 0-None Auditory Disturbances: 0-None Visual Disturbances: 0-None Headache: 0-None Present CIWA-Ar Total Score: 12 BHS Progress Note (SOAP) Subjective: 58 years old male admitted on 03/02/19 for alcohol withdrawal sx management treating with librium detox regimen ambulating with cane tremor encourage move slowly Objective: 03/04/19 11:18 Vital Signs Temperature 98.2 F 03/04/19 09:15 Pulse Rate 79 03/04/19 09:15 Respiratory Rate 20 03/04/19 09:15 Blood Pressure 92/58 L 03/04/19 09:15 O2 Sat by Pulse Oximetry (%) Laboratory Last Values WBC 8.5 K/mm3 (4.0-10.0) 03/03/19 08:10 RBC 4.55 M/mm3 (4.00-5.60) 03/03/19 08:10 Hgb 12.4 GM/dL (11.7-16.9) 03/03/19 08:10 Hct 37.6 % (35.4-49) 03/03/19 08:10 MCV 82.6 fl (80-96) 03/03/19 08:10 MCH 27.3 pg (25.7-33.7) 03/03/19 08:10 MCHC 33.1 g/dl (32.0-35.9) 03/03/19 08:10 RDW 14.8 % (11.9-15.9) 03/03/19 08:10 Plt Count 176 K/MM3 (134-434) 03/03/19 08:10 MPV 9.4 fl (7.5-11.1) 03/03/19 08:10 Sodium 140 mmol/L (136-145) 03/03/19 08:10 Potassium 3.5 mmol/L (3.5-5.1) 03/03/19 08:10 Chloride 104 mmol/L (98-107) 03/03/19 08:10 Carbon Dioxide 32 mmol/L (21-32) 03/03/19 08:10 Anion Gap 5 MMOL/L (8-16) L 03/03/19 08:10 BUN 10.3 mg/dL (7-18) 03/03/19 08:10 Creatinine 0.9 mg/dL (0.55-1.3) 03/03/19 08:10 Est GFR (CKD-EPI)AfAm 107.97 03/03/19 08:10 Est GFR (CKD-EPI)NonAf 93.16 03/03/19 08:10 Random Glucose 86 mg/dL (74-106) 03/03/19 08:10 Calcium 8.5 mg/dL (8.5-10.1) 03/03/19 08:10 Total Bilirubin 1.7 mg/dL (0.2-1) H 03/03/19 08:10 AST 10 U/L (15-37) L 03/03/19 08:10 ALT 17 U/L (13-61) 03/03/19 08:10 Alkaline Phosphatase 78 U/L (45-117) 03/03/19 08:10 Total Protein 6.0 g/dl (6.4-8.2) L 03/03/19 08:10 Albumin 3.0 g/dl (3.4-5.0) L 03/03/19 08:10 RPR Titer Nonreactive (NONREACTIVE) 03/03/19 08:10 lab noted Assessment: 03/04/19 11:19 alcohol withdrawal Plan: librium regimen
[2019-03-04] MEDS: THIAMINE HCL 100 MG TABLET (FP) PO SCH (22:08)
[2019-03-05] MEDS ORDERED: chlordiazePOXIDE HCL 10 MG CAPSULE PO PRN
[2019-03-05] MEDS: chlordiazePOXIDE HCL 10 MG CAPSULE PO SCH ×3 (06:24→22:29)
[2019-03-05] MEDS: NICOTINE 7 MG/24 HOURS TOPICAL PATCH TD SCH (10:09)
[2019-03-05] MEDS: PRENATAL VITAMINS W/ FOLIC ACID TABLET (FP) PO SCH (10:10)
[2019-03-05] MEDS: BUDESONIDE/FORMETEROL FUMARATE 80/4.5 mcg INHALER IH SCH ×2 (10:10→22:29)
[2019-03-05] MEDS: METHOCARBAMOL 500 MG TABLET PO PRN (10:54)
--- NOTE | 2019-03-05 13:53 | PN ---
S CIWA - CIWA Score Nausea/Vomitin-Mild Nausea/No Vomiting Muscle Tremors: 2 Anxiety: 1-Mildly Anxious Agitation: 1-Slight > Activity Paroxysmal Sweats: 2 Orientation: 0-Oriented Tacttile Disturbances: 2-Mild Itch/Numbness/Burn Auditory Disturbances: 0-None Visual Disturbances: 0-None Headache: 0-None Present CIWA-Ar Total Score: 9 BHS Progress Note (SOAP) Subjective: interrupted sleep, sweats, shakes, rt heel pain Objective: 03/05/19 13:52 Vital Signs Temperature 98.5 F 03/05/19 09:41 Pulse Rate 74 03/05/19 09:41 Respiratory Rate 17 03/05/19 09:41 Blood Pressure 94/59 L 03/05/19 09:41 O2 Sat by Pulse Oximetry (%) Laboratory Tests 03/03/19 03/03/19 03/03/19 08:10 08:10 08:10 WBC 8.5 RBC 4.55 Hgb 12.4 Hct 37.6 MCV 82.6 MCH 27.3 MCHC 33.1 RDW 14.8 Plt Count 176 MPV 9.4 Sodium 140 Potassium 3.5 Chloride 104 Carbon Dioxide 32 Anion Gap 5 L BUN 10.3 Creatinine 0.9 Est GFR (CKD-EPI)AfAm 107.97 Est GFR (CKD-EPI)NonAf 93.16 Random Glucose 86 Calcium 8.5 Total Bilirubin 1.7 H AST 10 L ALT 17 Alkaline Phosphatase 78 Total Protein 6.0 L Albumin 3.0 L RPR Titer Nonreactive pt aox3 in nad lying bed , uses cane to decrease wt bearing on rt heel. Assessment: 03/05/19 13:53 withdrawal sx's rt heel pain Plan: cont. detox increase fluids motrin prn
[2019-03-05] MEDS: THIAMINE HCL 100 MG TABLET (FP) PO SCH (22:29)
[2019-03-06] MEDS ORDERED: chlordiazePOXIDE HCL 10 MG CAPSULE PO ONE (05:00)
[2019-03-06] MEDS: METHOCARBAMOL 500 MG TABLET PO PRN (06:20)
[2019-03-06 09:15] VITALS: BP 107/69; PULSE 84; TEMP 98
--- NOTE | 2019-03-06 14:21 | DS ---
[facility] Detox Discharge Summary Admission Date: 03/02/19 Discharge Date: 03/06/19 - History Present History: Alcohol Dependence, Cannabis Dependence Additional Comments: Pt is medically cleared and discharged today. Pt completed the detox protocol. Pt is encouraged to follow-up with an outpatient CD program and also to follow- up with his pmd. Pt verbalized understanding. Pt is alert and oriented x3 and in no respiratory distress. Pertinent Past History: h/o asthma, copd, alcohol, and cannabis use disorder. - Physical Exam Results Vital Signs: Vital Signs Temperature 98.0 F 03/06/19 09:14 Pulse Rate 84 03/06/19 09:14 Respiratory Rate 16 03/06/19 09:14 Blood Pressure 107/69 03/06/19 09:14 O2 Sat by Pulse Oximetry (%) Vital Signs 03/06/19 03/06/19 06:24 09:14 Temperature 98.2 F 98.0 F Pulse Rate 78 84 Respiratory 18 16 Rate Blood Pressure 115/70 107/69 Laboratory Last Values WBC 8.5 K/mm3 (4.0-10.0) 03/03/19 08:10 RBC 4.55 M/mm3 (4.00-5.60) 03/03/19 08:10 Hgb 12.4 GM/dL (11.7-16.9) 03/03/19 08:10 Hct 37.6 % (35.4-49) 03/03/19 08:10 MCV 82.6 fl (80-96) 03/03/19 08:10 MCH 27.3 pg (25.7-33.7) 03/03/19 08:10 MCHC 33.1 g/dl (32.0-35.9) 03/03/19 08:10 RDW 14.8 % (11.9-15.9) 03/03/19 08:10 Plt Count 176 K/MM3 (134-434) 03/03/19 08:10 MPV 9.4 fl (7.5-11.1) 03/03/19 08:10 Sodium 140 mmol/L (136-145) 03/03/19 08:10 Potassium 3.5 mmol/L (3.5-5.1) 03/03/19 08:10 Chloride 104 mmol/L (98-107) 03/03/19 08:10 Carbon Dioxide 32 mmol/L (21-32) 03/03/19 08:10 Anion Gap 5 MMOL/L (8-16) L 03/03/19 08:10 BUN 10.3 mg/dL (7-18) 03/03/19 08:10 Creatinine 0.9 mg/dL (0.55-1.3) 03/03/19 08:10 Est GFR (CKD-EPI)AfAm 107.97 03/03/19 08:10 Est GFR (CKD-EPI)NonAf 93.16 03/03/19 08:10 Random Glucose 86 mg/dL (74-106) 03/03/19 08:10 Calcium 8.5 mg/dL (8.5-10.1) 03/03/19 08:10 Total Bilirubin 1.7 mg/dL (0.2-1) H 03/03/19 08:10 AST 10 U/L (15-37) L 03/03/19 08:10 ALT 17 U/L (13-61) 03/03/19 08:10 Alkaline Phosphatase 78 U/L (45-117) 03/03/19 08:10 Total Protein 6.0 g/dl (6.4-8.2) L 03/03/19 08:10 Albumin 3.0 g/dl (3.4-5.0) L 03/03/19 08:10 RPR Titer Nonreactive (NONREACTIVE) 03/03/19 08:10 Labs noted. Pertinent Admission Physical Exam Findings: withdrawal symptoms. - Treatment Hospital Course: Detox Protocol Followed, Detoxed Safely, Responded well, Discharged Condition Good - Medication Discharge Medications: Ambulatory Orders Albuterol Sulfate Inhaler - [Ventolin HFA Inhaler -] 2 inh IH Q4H PRN #1 canister 01/12/19 Budesonide/Formeterol Fumarate [SYMBICORT 80/4.5mcg -] 2 puff IH BID #1 inhaler 01/12/19 Apixaban [Eliquis] 5 mg PO DAILY 03/02/19 Aspirin Coated [Ecotrin -] 81 mg PO DAILY 03/02/19 Atorvastatin Ca [Lipitor] 10 mg PO HS 03/02/19 Clopidogrel Bisulfate [Clopidogrel] 75 mg PO DAILY 03/02/19 Folic Acid 1 mg PO DAILY 03/02/19 Loratadine [Claritin -] 10 mg PO DAILY 03/02/19 Metoprolol Tartrate [Lopressor -] 25 mg PO DAILY 03/02/19 Mometasone/Formoterol [Dulera 200 Mcg/5 Mcg Inhaler] 2 inh IH BID 03/02/19 Montelukast Na [Singulair -] 10 mg PO HS 03/02/19 Multivitamins [Tab-A-Vit -] 1 tab PO DAILY 03/02/19 Thiamine Mononitrate [Vitamin B-1] 100 mg PO DAILY 03/02/19 - Diagnosis (1) Rash/skin eruption Status: Acute (2) Asthma Status: Chronic Qualifiers: Asthma severity: mild Asthma persistence: unspecified Asthma complication type: unspecified Qualified Code(s): J45.909 - Unspecified asthma , uncomplicated (3) COPD (chronic obstructive pulmonary disease) Status: Chronic Qualifiers: Emphysema type: unspecified (4) H/O hemorrhoids Status: Chronic (5) Nicotine dependence Status: Chronic Qualifiers: Nicotine product type: cigarettes Substance use status: uncomplicated Qualified Code(s): F17.210 - Nicotine dependence, cigarettes, uncomplicated - AMA Did Patient Leave Against Medical Advice: No
== END 2019-03-06 11:23 | disposition home or self-care (01) | DRG 775 ==
LOC: YASAS 10:47 → Y3N 14:50
PROVIDERS: ADMIT Allergy & Immunology; ATTEND Allergy & Immunology
PROC: HZ2ZZZZ Detoxification Services for Substance Abuse Treatment (ICD-10-PCS; principal; 2019-03-02)
DX: F10.230 Alcohol dependence with withdrawal, uncomplicated (principal); F12.20 Cannabis dependence, uncomplicated; F17.210 Nicotine dependence, cigarettes, uncomplicated; J44.9 Chronic obstructive pulmonary disease, unspecified; R21 Rash and other nonspecific skin eruption; K64.8 Other hemorrhoids; M79.671 Pain in right foot; Z87.820 Personal history of traumatic brain injury; Z98.890 Other specified postprocedural states; Z88.0 Allergy status to penicillin; Z91.018 Allergy to other foods
CPT/HCPCS: 36415; 80053; 85027; 86593

== ENCOUNTER 2019-04-19 09:00 | Inpatient (IN) | payer OTHER ==
--- NOTE | 2019-04-19 09:18 | BHS.RME ---
Substance Use & Tx History - Substance Use History Alcohol Substance amount: 4 pints Vodka, 2-3 beer x 24 ounce Frequency of use: Daily Substance route: Oral Date of Last Use: 04/18/19 Cannabis Substance amount: $10 Frequency of use: Daily Substance route: Smoking Date of Last Use: 04/18/19 Physical/Psych/Mental Status - Behavior General Behavior: Increased activity (restlessness, agitation) - Cooperativeness Cooperativeness: Cooperative - Thinking Thought Processes: Tight Thought content: Future oriented - Physical Health Problems Is patient presently having any pain?: No Does patient presently have any injuries (include location): No Does patient currently have a fever: No Is patient : No CIWA Nausea/Vomitin-No Nausea/No Vomiting Muscle Tremors: 2 Anxiety: 0-No Anxiety, at Ease Agitation: 0-Normal Activity Paroxysmal Sweats: No Perspiration Orientation: 0-Oriented Tacttile Disturbances: 0-None Auditory Disturbances: 0-None Visual Disturbances: 0-None Headache: 0-None Present CIWA-Ar Total Score: 2
[2019-04-19 10:59] VITALS: BMI 27.2
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
[2019-04-19] MEDS ORDERED: IBUPROFEN 400 MG TABLET (FP) PO PRN (11:40)
[2019-04-19] MEDS ORDERED: MAGNESIUM CITRATE 300 ML BOTTLE PO PRN (11:40)
[2019-04-19] MEDS ORDERED: METHOCARBAMOL 500 MG TABLET PO PRN (11:40)
[2019-04-19] MEDS ORDERED: chlordiazePOXIDE HCL 25 MG CAPSULE PO PRN (11:40)
[2019-04-19] MEDS ORDERED: BISMUTH SUBSALICYLATE 524 MG/30 ML UD PO PRN (11:40)
[2019-04-19] MEDS ORDERED: MAG HYDROX/AL HYDROX/SIMETH 30 ML UNIT-DOSE CUP PO PRN (11:40)
[2019-04-19] MEDS ORDERED: MENTHOL/PHENOL 1 EACH UD MM PRN (11:40)
[2019-04-19] MEDS ORDERED: NICOTINE POLACRILEX 2 MG GUM BUC PRN (11:40)
[2019-04-19] MEDS ORDERED: ACETAMINOPHEN 325 MG TABLET (FP) PO PRN ×2 (11:40)
[2019-04-19] MEDS ORDERED: MAGNESIUM HYDROX 2400MG/30ML ORAL SUSPENSION 30 ML CUP PO PRN (11:40)
[2019-04-19] MEDS ORDERED: ONDANSETRON *ODT* 4 MG TABLET SL ONE (12:35)
[2019-04-19] MEDS: hydrOXYzine PAMOATE 25 MG CAPSULE (FP) PO SCH ×3 (13:06→23:05)
[2019-04-19 15:20] LABS: HEMATOCRIT 42.7 % (35.4-49); HEMOGLOBIN 14.3 GM/dL (11.7-16.9); MCH 26.7 pg (25.7-33.7); MCHC 33.4 g/dl (32.0-35.9); MEAN CELL VOLUME 79.9 fl (80-96); MEAN PLT VOLUME 9.5 fl (7.5-11.1); PLATELET COUNT 222 K/MM3 (134-434); RBC 5.35 M/mm3 (4.00-5.60)
[2019-04-19 15:30] LABS: ALBUMIN 3.8 g/dl (3.4-5.0); BILIRUBIN,TOTAL 1.6 mg/dL (0.2-1); BLOOD UREA NITROGEN 20.8 mg/dL (7-18); CALCIUM 8.6 mg/dL (8.5-10.1); CREATININE 1.2 mg/dL (0.55-1.3); POTASSIUM 4.4 mmol/L (3.5-5.1); TOT PROT 7.4 g/dl (6.4-8.2)
[2019-04-19] MEDS: chlordiazePOXIDE HCL 25 MG CAPSULE PO SCH ×2 (18:20→22:02)
[2019-04-19] MEDS: THIAMINE HCL 100 MG TABLET (FP) PO SCH (22:02)
[2019-04-19] MEDS: MELATONIN 5 MG TABLETS PO SCH (23:05)
[2019-04-20] MEDS: chlordiazePOXIDE HCL 25 MG CAPSULE PO SCH ×4 (06:02→23:31)
[2019-04-20] MEDS: hydrOXYzine PAMOATE 25 MG CAPSULE (FP) PO SCH ×2 (06:04→10:49)
--- NOTE | 2019-04-20 09:43 | PN ---
BHS CIWA - CIWA Score Nausea/Vomitin Muscle Tremors: 2 Anxiety: 3 Agitation: 3 Paroxysmal Sweats: 1-Minimal Palms Moist Orientation: 0-Oriented Tacttile Disturbances: 1-Very Mild Itch/Numbness Auditory Disturbances: 0-None Visual Disturbances: 0-None Headache: 1-Very Mild CIWA-Ar Total Score: 13 BHS Progress Note (SOAP) Subjective: alert,irritable,anxious,interrupted sleep,tremor Objective: Vital Signs Temperature 97.8 F 04/20/19 08:45 Pulse Rate 78 04/20/19 08:45 Respiratory Rate 17 04/20/19 08:45 Blood Pressure 100/78 04/20/19 08:45 O2 Sat by Pulse Oximetry (%) Assessment: 04/20/19 09:40 withdrawal symptom Plan: continue detox librium regimen
[2019-04-20] MEDS ORDERED: hydrOXYzine PAMOATE 25 MG CAPSULE (FP) PO PRN (10:11)
[2019-04-20] MEDS: PRENATAL VITAMINS W/ FOLIC ACID TABLET (FP) PO SCH (10:49)
[2019-04-20] MEDS: MELATONIN 5 MG TABLETS PO SCH (23:31)
[2019-04-20] MEDS: THIAMINE HCL 100 MG TABLET (FP) PO SCH (23:32)
[2019-04-21] MEDS: chlordiazePOXIDE HCL 25 MG CAPSULE PO SCH ×4 (06:25→22:36)
[2019-04-21] MEDS ORDERED: ALBUTEROL SO4 HFA INHALER IH PRN (08:42)
--- NOTE | 2019-04-21 09:41 | PN ---
S CIWA - CIWA Score Nausea/Vomitin-Mild Nausea/No Vomiting Muscle Tremors: 2 Anxiety: 2 Agitation: 2 Paroxysmal Sweats: No Perspiration Orientation: 0-Oriented Tacttile Disturbances: 1-Very Mild Itch/Numbness Auditory Disturbances: 0-None Visual Disturbances: 0-None Headache: 1-Very Mild CIWA-Ar Total Score: 9 S Progress Note (SOAP) Subjective: alert,irritable,interrupted sleep,pain in the body,old abrasions of fingers, ambulate with cane Objective: 04/21/19 09:39 Vital Signs Temperature 98.1 F 04/21/19 08:43 Pulse Rate 78 04/21/19 08:43 Respiratory Rate 18 04/21/19 08:43 Blood Pressure 128/62 04/21/19 08:43 O2 Sat by Pulse Oximetry (%) 04/21/19 09:39 Laboratory Last Values WBC 7.0 K/mm3 (4.0-10.0) 04/19/19 11:50 RBC 5.35 M/mm3 (4.00-5.60) 04/19/19 11:50 Hgb 14.3 GM/dL (11.7-16.9) 04/19/19 11:50 Hct 42.7 % (35.4-49) 04/19/19 11:50 MCV 79.9 fl (80-96) L 04/19/19 11:50 MCH 26.7 pg (25.7-33.7) 04/19/19 11:50 MCHC 33.4 g/dl (32.0-35.9) 04/19/19 11:50 RDW 16.0 % (11.9-15.9) H 04/19/19 11:50 Plt Count 222 K/MM3 (134-434) D 04/19/19 11:50 MPV 9.5 fl (7.5-11.1) 04/19/19 11:50 Sodium 138 mmol/L (136-145) 04/19/19 11:50 Potassium 4.4 mmol/L (3.5-5.1) 04/19/19 11:50 Chloride 103 mmol/L (98-107) 04/19/19 11:50 Carbon Dioxide 29 mmol/L (21-32) 04/19/19 11:50 Anion Gap 7 MMOL/L (8-16) L 04/19/19 11:50 BUN 20.8 mg/dL (7-18) H 04/19/19 11:50 Creatinine 1.2 mg/dL (0.55-1.3) 04/19/19 11:50 Est GFR (CKD-EPI)AfAm 76.25 04/19/19 11:50 Est GFR (CKD-EPI)NonAf 65.79 04/19/19 11:50 Random Glucose 89 mg/dL (74-106) 04/19/19 11:50 Calcium 8.6 mg/dL (8.5-10.1) 04/19/19 11:50 Total Bilirubin 1.6 mg/dL (0.2-1) H 04/19/19 11:50 AST 29 U/L (15-37) 04/19/19 11:50 ALT 34 U/L (13-61) 04/19/19 11:50 Alkaline Phosphatase 99 U/L (45-117) 04/19/19 11:50 Total Protein 7.4 g/dl (6.4-8.2) 04/19/19 11:50 Albumin 3.8 g/dl (3.4-5.0) 04/19/19 11:50 RPR Titer Nonreactive (NONREACTIVE) 04/19/19 11:50 Assessment: 04/21/19 09:40 withdrawal symptom Plan: continue detox librium regimen,patient stated that his medical provider stopped his medications,only take albuterol in haler if needed,has been followed up with his medical provider regular
[2019-04-21] MEDS: BACITRACIN 0.9 GM PACKET TP SCH ×2 (10:30→22:36)
[2019-04-21] MEDS: PRENATAL VITAMINS W/ FOLIC ACID TABLET (FP) PO SCH (10:30)
[2019-04-21] MEDS: THIAMINE HCL 100 MG TABLET (FP) PO SCH (22:36)
[2019-04-21] MEDS: MELATONIN 5 MG TABLETS PO SCH (22:36)
[2019-04-22] MEDS ORDERED: chlordiazePOXIDE HCL 10 MG CAPSULE PO PRN
[2019-04-22] MEDS: chlordiazePOXIDE HCL 10 MG CAPSULE PO SCH ×4 (07:47→23:34)
--- NOTE | 2019-04-22 10:05 | PN ---
[facility] CIWA - CIWA Score Nausea/Vomitin-Mild Nausea/No Vomiting Muscle Tremors: 1-None Visible, but [place] Anxiety: 2 Agitation: 2 Paroxysmal Sweats: No Perspiration Orientation: 0-Oriented Tacttile Disturbances: 0-None Auditory Disturbances: 0-None Visual Disturbances: 0-None Headache: 1-Very Mild CIWA-Ar Total Score: 7 S Progress Note (SOAP) Subjective: alert,irritable,interrupted sleep,anxious Objective: 04/22/19 10:03 Vital Signs Temperature 98.1 F 04/22/19 09:01 Pulse Rate 73 04/22/19 09:01 Respiratory Rate 18 04/22/19 09:01 Blood Pressure 119/55 L 04/22/19 09:01 O2 Sat by Pulse Oximetry (%) 04/22/19 10:03 Laboratory Last Values WBC 7.0 K/mm3 (4.0-10.0) 04/19/19 11:50 RBC 5.35 M/mm3 (4.00-5.60) 04/19/19 11:50 Hgb 14.3 GM/dL (11.7-16.9) 04/19/19 11:50 Hct 42.7 % (35.4-49) 04/19/19 11:50 MCV 79.9 fl (80-96) L 04/19/19 11:50 MCH 26.7 pg (25.7-33.7) 04/19/19 11:50 MCHC 33.4 g/dl (32.0-35.9) 04/19/19 11:50 RDW 16.0 % (11.9-15.9) H 04/19/19 11:50 Plt Count 222 K/MM3 (134-434) D 04/19/19 11:50 MPV 9.5 fl (7.5-11.1) 04/19/19 11:50 Sodium 138 mmol/L (136-145) 04/19/19 11:50 Potassium 4.4 mmol/L (3.5-5.1) 04/19/19 11:50 Chloride 103 mmol/L (98-107) 04/19/19 11:50 Carbon Dioxide 29 mmol/L (21-32) 04/19/19 11:50 Anion Gap 7 MMOL/L (8-16) L 04/19/19 11:50 BUN 20.8 mg/dL (7-18) H 04/19/19 11:50 Creatinine 1.2 mg/dL (0.55-1.3) 04/19/19 11:50 Est GFR (CKD-EPI)AfAm 76.25 04/19/19 11:50 Est GFR (CKD-EPI)NonAf 65.79 04/19/19 11:50 Random Glucose 89 mg/dL (74-106) 04/19/19 11:50 Calcium 8.6 mg/dL (8.5-10.1) 04/19/19 11:50 Total Bilirubin 1.6 mg/dL (0.2-1) H 04/19/19 11:50 AST 29 U/L (15-37) 04/19/19 11:50 ALT 34 U/L (13-61) 04/19/19 11:50 Alkaline Phosphatase 99 U/L (45-117) 04/19/19 11:50 Total Protein 7.4 g/dl (6.4-8.2) 04/19/19 11:50 Albumin 3.8 g/dl (3.4-5.0) 04/19/19 11:50 RPR Titer Nonreactive (NONREACTIVE) 04/19/19 11:50 Assessment: 04/22/19 10:04 withdrawal symptom Plan: continue detox,encourage fluid,repeat cmp in am
[2019-04-22] MEDS: PRENATAL VITAMINS W/ FOLIC ACID TABLET (FP) PO SCH (11:07)
[2019-04-22] MEDS: BACITRACIN 0.9 GM PACKET TP SCH ×2 (11:07→22:28)
--- NOTE | 2019-04-22 12:17 | PN ---
BHS Progress Note Note: less withdrawal symptom Vital Signs Temperature 98.1 F 04/22/19 09:01 Pulse Rate 73 04/22/19 09:01 Respiratory Rate 18 04/22/19 09:01 Blood Pressure 119/55 L 04/22/19 09:01 O2 Sat by Pulse Oximetry (%) patient would like to be discharge in am,advise follow up with after care program and medical provider for medical problem follow up
[2019-04-22 21:48] VITALS: BP 114/74; PULSE 79; TEMP 98.2
[2019-04-22] MEDS: THIAMINE HCL 100 MG TABLET (FP) PO SCH (22:28)
[2019-04-22] MEDS: MELATONIN 5 MG TABLETS PO SCH (22:29)
[2019-04-23] MEDS ORDERED: chlordiazePOXIDE HCL 10 MG CAPSULE PO SCH (05:00)
--- NOTE | 2019-04-23 08:41 | DS ---
[facility] Detox Discharge Summary Admission Date: 04/19/19 Discharge Date: 04/23/19 - History Present History: Alcohol Dependence, Cannabis Dependence - Physical Exam Results Vital Signs: Vital Signs Temperature 98.2 F 04/22/19 20:47 Pulse Rate 79 04/22/19 20:47 Respiratory Rate 18 04/23/19 03:18 Blood Pressure 114/74 04/22/19 20:47 O2 Sat by Pulse Oximetry (%) Pertinent Admission Physical Exam Findings: Vital Signs Temperature 98.2 F 04/22/19 20:47 Pulse Rate 79 04/22/19 20:47 Respiratory Rate 18 04/23/19 03:18 Blood Pressure 114/74 04/22/19 20:47 O2 Sat by Pulse Oximetry (%) Laboratory Tests 04/19/19 04/19/19 04/19/19 11:50 11:50 11:50 WBC 7.0 RBC 5.35 Hgb 14.3 Hct 42.7 MCV 79.9 L MCH 26.7 MCHC 33.4 RDW 16.0 H Plt Count 222 D MPV 9.5 Sodium 138 Potassium 4.4 Chloride 103 Carbon Dioxide 29 Anion Gap 7 L BUN 20.8 H Creatinine 1.2 Est GFR (CKD-EPI)AfAm 76.25 Est GFR (CKD-EPI)NonAf 65.79 Random Glucose 89 Calcium 8.6 Total Bilirubin 1.6 H AST 29 ALT 34 Alkaline Phosphatase 99 Total Protein 7.4 Albumin 3.8 RPR Titer Nonreactive aaox3 ambulating no acute distress - Treatment Hospital Course: Detox Protocol Followed, Detoxed Safely, Responded well, Discharged Condition Good, Rehab Referral Accepted - Medication Discharge Medications: Ambulatory Orders Aspirin Coated [Ecotrin -] 81 mg PO DAILY 03/02/19 Atorvastatin Ca [Lipitor] 10 mg PO HS 03/02/19 Mometasone/Formoterol [Dulera 200 Mcg/5 Mcg Inhaler] 2 inh IH BID 03/02/19 Montelukast Na [Singulair -] 10 mg PO HS 03/02/19 Thiamine Mononitrate [Vitamin B-1] 100 mg PO DAILY 03/02/19 - Diagnosis (1) Cannabis abuse Status: Acute (2) Alcohol dependence with uncomplicated withdrawal Status: Chronic (3) Asthma Status: Chronic Qualifiers: Asthma severity: mild Asthma persistence: unspecified Asthma complication type: unspecified Qualified Code(s): J45.909 - Unspecified asthma, uncomplicated (4) COPD (chronic obstructive pulmonary disease) Status: Chronic Qualifiers: Emphysema type: unspecified (5) Nicotine dependence Status: Chronic Qualifiers: Nicotine product type: cigarettes Substance use status: uncomplicated Qualified Code(s): F17.210 - Nicotine dependence, cigarettes, uncomplicated - AMA Did Patient Leave Against Medical Advice: No
[2019-04-24] MEDS ORDERED: chlordiazePOXIDE HCL 10 MG CAPSULE PO ONE (05:00)
== END 2019-04-23 06:55 | disposition home or self-care (01) | DRG 775 ==
LOC: YASAS 09:00 → Y6N 11:59
PROVIDERS: ADMIT Allergy & Immunology; ATTEND Allergy & Immunology
PROC: HZ2ZZZZ Detoxification Services for Substance Abuse Treatment (ICD-10-PCS; principal; 2019-04-19)
DX: F10.230 Alcohol dependence with withdrawal, uncomplicated (principal); F12.20 Cannabis dependence, uncomplicated; F17.210 Nicotine dependence, cigarettes, uncomplicated; J44.9 Chronic obstructive pulmonary disease, unspecified; J45.998 Other asthma; Z87.828 Personal history of other (healed) physical injury and trauma; Z88.0 Allergy status to penicillin; Z91.018 Allergy to other foods
CPT/HCPCS: 36415; 80053; 85027; 86593

== ENCOUNTER 2019-08-21 12:56 | Inpatient (IN) | payer OTHER ==
[2019-08-21 17:38] VITALS: BMI 27.6
--- NOTE | 2019-08-21 18:18 | BHS.RME ---
Substance Use & Tx History - Substance Use History Alcohol Substance amount: 3pints of vodka/6packs of 12 ozs of beer Frequency of use: Daily Substance route: Oral Date of Last Use: 08/21/19 Marijuana/Hashish Substance amount: 10 $ Frequency of use: Less than 3 times per week Substance route: Smoking Date of Last Use: 08/21/19 - Last Treatment Date of last treatment: [facility] 04/19/2019 to 04/23/2019 Where was last treatment: Detox Physical/Psych/Mental Status - Behavior Eye Contact: Normal - Cooperativeness Cooperativeness: Cooperative - Thinking Thought Processes: Logical Thought content: Future oriented - Physical Health Problems Is patient presently having any pain?: No Does patient presently have any injuries (include location): No CIWA Nausea/Vomitin Muscle Tremors: 2 Anxiety: 3 Agitation: 3 Paroxysmal Sweats: 1-Minimal Palms Moist Orientation: 0-Oriented Tacttile Disturbances: 1-Very Mild Itch/Numbness Auditory Disturbances: 0-None Visual Disturbances: 0-None Headache: 2-Mild CIWA-Ar Total Score: 14
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
[2019-08-21] MEDS ORDERED: chlordiazePOXIDE HCL 25 MG CAPSULE PO PRN (18:37)
[2019-08-21] MEDS ORDERED: MENTHOL/PHENOL 1 EACH UD MM PRN (18:37)
[2019-08-21] MEDS ORDERED: IBUPROFEN 400 MG TABLET (FP) PO PRN (18:37)
[2019-08-21] MEDS ORDERED: ACETAMINOPHEN 325 MG TABLET (FP) PO PRN ×2 (18:37)
[2019-08-21] MEDS ORDERED: BISMUTH SUBSALICYLATE 524 MG/30 ML UD PO PRN (18:37)
[2019-08-21] MEDS ORDERED: NICOTINE POLACRILEX 2 MG GUM BUC PRN (18:37)
[2019-08-21] MEDS ORDERED: MAG HYDROX/AL HYDROX/SIMETH 30 ML UNIT-DOSE CUP PO PRN (18:37)
[2019-08-21] MEDS ORDERED: MAGNESIUM HYDROX 2400MG/30ML ORAL SUSPENSION 30 ML CUP PO PRN (18:37)
[2019-08-21] MEDS ORDERED: METHOCARBAMOL 500 MG TABLET PO PRN (18:37)
[2019-08-21] MEDS ORDERED: ONDANSETRON *ODT* 4 MG TABLET SL ONE (18:37)
[2019-08-21] MEDS ORDERED: MAGNESIUM CITRATE 300 ML BOTTLE PO PRN (18:37)
[2019-08-21] MEDS: THIAMINE HCL 100 MG TABLET (FP) PO SCH (22:00)
[2019-08-21] MEDS: MELATONIN 5 MG TABLETS PO SCH (22:00)
[2019-08-21] MEDS: chlordiazePOXIDE HCL 25 MG CAPSULE PO SCH (22:00)
[2019-08-21] MEDS: hydrOXYzine PAMOATE 25 MG CAPSULE (FP) PO SCH (22:00)
[2019-08-22] MEDS: hydrOXYzine PAMOATE 25 MG CAPSULE (FP) PO SCH ×5 (06:13→22:47)
[2019-08-22] MEDS: chlordiazePOXIDE HCL 25 MG CAPSULE PO SCH ×4 (06:13→22:47)
[2019-08-22] MEDS: PRENATAL VITAMINS W/ FOLIC ACID TABLET (FP) PO SCH (11:07)
[2019-08-22] MEDS: NICOTINE 7 MG/24 HOURS TOPICAL PATCH TD SCH (11:07)
--- NOTE | 2019-08-22 12:29 | PN ---
S CIWA - CIWA Score Nausea/Vomitin-Mild Nausea/No Vomiting Muscle Tremors: 2 Anxiety: 3 Agitation: 2 Paroxysmal Sweats: 1-Minimal Palms Moist Orientation: 0-Oriented Tacttile Disturbances: 0-None Auditory Disturbances: 0-None Visual Disturbances: 1-Very Mild Sensitivity Headache: 2-Mild CIWA-Ar Total Score: 12 BHS Progress Note (SOAP) Subjective: Complaints of mild nausea but no vomiting,headache, sweating and light sen sitivity. Objective: 08/22/19 12:28 Vital Signs 08/22/19 08/22/19 08/22/19 05:17 06:28 08:55 Temperature 98.4 F 98 F Pulse Rate 84 96 H Respiratory 20 20 17 Rate Blood Pressure 127/73 128/73 O2 Sat by Pulse 95 Oximetry (%) Labs pending. Assessment: 08/22/19 12:28 Alert and oriented x3, in no acute respiratory distress Full ROM, skin warm to touch, ambulatory on unit with cane. Mild withdrawal symptoms. Plan: Continue detox protocol.
[2019-08-22] MEDS: THIAMINE HCL 100 MG TABLET (FP) PO SCH (22:47)
[2019-08-22] MEDS: MELATONIN 5 MG TABLETS PO SCH (22:47)
[2019-08-23] MEDS: chlordiazePOXIDE HCL 25 MG CAPSULE PO SCH ×4 (05:59→22:01)
[2019-08-23] MEDS: hydrOXYzine PAMOATE 25 MG CAPSULE (FP) PO SCH ×5 (05:59→22:01)
[2019-08-23] MEDS: PRENATAL VITAMINS W/ FOLIC ACID TABLET (FP) PO SCH (10:18)
[2019-08-23] MEDS: NICOTINE 7 MG/24 HOURS TOPICAL PATCH TD SCH ×2 (10:18→10:28)
--- NOTE | 2019-08-23 13:58 | PN ---
S CIWA - CIWA Score Nausea/Vomitin-Mild Nausea/No Vomiting Muscle Tremors: 2 Anxiety: 2 Agitation: 2 Paroxysmal Sweats: No Perspiration Orientation: 0-Oriented Tacttile Disturbances: 1-Very Mild Itch/Numbness Auditory Disturbances: 0-None Visual Disturbances: 0-None Headache: 2-Mild CIWA-Ar Total Score: 10 BHS Progress Note (SOAP) Subjective: alert,irritable,anxious,interrupted sleep,tremor,pain in the body and both knees Objective: 08/23/19 13:54 Vital Signs Temperature 98.4 F 08/23/19 09:19 Pulse Rate 74 08/23/19 09:19 Respiratory Rate 16 08/23/19 09:19 Blood Pressure 109/65 08/23/19 09:19 O2 Sat by Pulse Oximetry (%) 96 08/23/19 05:32 Assessment: 08/23/19 13:57 withdrawal symptom Plan: continue detox librium regimen
[2019-08-23] MEDS: THIAMINE HCL 100 MG TABLET (FP) PO SCH (22:01)
[2019-08-23] MEDS: MELATONIN 5 MG TABLETS PO SCH (22:03)
[2019-08-24] MEDS ORDERED: chlordiazePOXIDE HCL 10 MG CAPSULE PO PRN
[2019-08-24] MEDS: chlordiazePOXIDE HCL 10 MG CAPSULE PO SCH ×4 (05:42→22:00)
[2019-08-24] MEDS: hydrOXYzine PAMOATE 25 MG CAPSULE (FP) PO SCH ×5 (05:42→21:56)
[2019-08-24 10:27] LABS: HEMATOCRIT 42.6 % (35.4-49); HEMOGLOBIN 13.8 GM/dL (11.7-16.9); MCH 27.4 pg (25.7-33.7); MCHC 32.4 g/dl (32.0-35.9); MEAN CELL VOLUME 84.5 fl (80-96); MEAN PLT VOLUME 9.2 fl (7.5-11.1); PLATELET COUNT 254 K/MM3 (134-434); RBC 5.04 M/mm3 (4.00-5.60); RDW 17.8 % (11.9-15.9); WHITE BLOOD COUNT 6.5 K/mm3 (4.0-10.0)
[2019-08-24 10:30] LABS: ALBUMIN 2.7 g/dl (3.4-5.0); BILIRUBIN,TOTAL 0.8 mg/dL (0.2-1); BLOOD UREA NITROGEN 7.2 mg/dL (7-18); CALCIUM 8.8 mg/dL (8.5-10.1); CREATININE 0.9 mg/dL (0.55-1.3); POTASSIUM 4.4 mmol/L (3.5-5.1); TOT PROT 5.7 g/dl (6.4-8.2)
[2019-08-24] MEDS: PRENATAL VITAMINS W/ FOLIC ACID TABLET (FP) PO SCH (10:48)
[2019-08-24] MEDS: NICOTINE 7 MG/24 HOURS TOPICAL PATCH TD SCH (10:48)
--- NOTE | 2019-08-24 11:11 | PN ---
S CIWA - CIWA Score Nausea/Vomitin-Mild Nausea/No Vomiting Muscle Tremors: 2 Anxiety: 2 Agitation: 2 Paroxysmal Sweats: No Perspiration Orientation: 0-Oriented Tacttile Disturbances: 0-None Auditory Disturbances: 0-None Visual Disturbances: 0-None Headache: 1-Very Mild CIWA-Ar Total Score: 8 S Progress Note (SOAP) Subjective: alert,irritable,anxious,interrupted sleep,pain in the body Objective: 08/24/19 11:09 Vital Signs Temperature 97.8 F 08/24/19 09:12 Pulse Rate 80 08/24/19 09:12 Respiratory Rate 18 08/24/19 09:12 Blood Pressure 142/87 08/24/19 09:12 O2 Sat by Pulse Oximetry (%) 96 08/24/19 06:31 08/24/19 11:09 Laboratory Last Values WBC 6.5 K/mm3 (4.0-10.0) 08/24/19 08:00 RBC 5.04 M/mm3 (4.00-5.60) 08/24/19 08:00 Hgb 13.8 GM/dL (11.7-16.9) 08/24/19 08:00 Hct 42.6 % (35.4-49) 08/24/19 08:00 MCV 84.5 fl (80-96) 08/24/19 08:00 MCH 27.4 pg (25.7-33.7) 08/24/19 08:00 MCHC 32.4 g/dl (32.0-35.9) 08/24/19 08:00 RDW 17.8 % (11.9-15.9) H 08/24/19 08:00 Plt Count 254 K/MM3 (134-434) 08/24/19 08:00 MPV 9.2 fl (7.5-11.1) 08/24/19 08:00 Sodium 143 mmol/L (136-145) 08/24/19 08:00 Potassium 4.4 mmol/L (3.5-5.1) 08/24/19 08:00 Chloride 106 mmol/L (98-107) 08/24/19 08:00 Carbon Dioxide 31 mmol/L (21-32) 08/24/19 08:00 Anion Gap 5 MMOL/L (8-16) L 08/24/19 08:00 BUN 7.2 mg/dL (7-18) 08/24/19 08:00 Creatinine 0.9 mg/dL (0.55-1.3) 08/24/19 08:00 Est GFR (CKD-EPI)AfAm 107.22 08/24/19 08:00 Est GFR (CKD-EPI)NonAf 92.51 08/24/19 08:00 Random Glucose 85 mg/dL (74-106) 08/24/19 08:00 Calcium 8.8 mg/dL (8.5-10.1) 08/24/19 08:00 Total Bilirubin 0.8 mg/dL (0.2-1) 08/24/19 08:00 AST 12 U/L (15-37) L 08/24/19 08:00 ALT 14 U/L (13-61) 08/24/19 08:00 Alkaline Phosphatase 78 U/L (45-117) 08/24/19 08:00 Total Protein 5.7 g/dl (6.4-8.2) L 08/24/19 08:00 Albumin 2.7 g/dl (3.4-5.0) L 08/24/19 08:00 COVID-19 (ROSEANNE) Not detected (Not Detected) 08/21/19 19:00 Assessment: 08/24/19 11:10 withdrawal symptom Plan: continue detox librium regimen
[2019-08-24] MEDS: THIAMINE HCL 100 MG TABLET (FP) PO SCH (21:56)
[2019-08-24] MEDS: MELATONIN 5 MG TABLETS PO SCH (22:43)
[2019-08-25] MEDS ORDERED: chlordiazePOXIDE HCL 10 MG CAPSULE PO SCH (05:00)
[2019-08-25] MEDS: hydrOXYzine PAMOATE 25 MG CAPSULE (FP) PO SCH ×2 (06:22→10:01)
[2019-08-25 09:49] VITALS: BP 105/61; PULSE 93; TEMP 97.6
[2019-08-25] MEDS: NICOTINE 7 MG/24 HOURS TOPICAL PATCH TD SCH (10:00)
[2019-08-25] MEDS: PRENATAL VITAMINS W/ FOLIC ACID TABLET (FP) PO SCH (10:00)
[2019-08-25] MEDS ORDERED: hydrOXYzine PAMOATE 25 MG CAPSULE (FP) PO PRN (10:26)
--- NOTE | 2019-08-25 10:40 | DS ---
[facility] Detox Discharge Summary Admission Date: 08/21/19 Discharge Date: 08/25/19 - History Present History: Alcohol Dependence - Physical Exam Results Vital Signs: Vital Signs Temperature 97.6 F 08/25/19 08:35 Pulse Rate 93 H 08/25/19 08:35 Respiratory Rate 18 08/25/19 08:35 Blood Pressure 105/61 08/25/19 08:35 O2 Sat by Pulse Oximetry (%) 98 08/24/19 21:43 Pertinent Admission Physical Exam Findings: Vital Signs Temperature 97.6 F 08/25/19 08:35 Pulse Rate 93 H 08/25/19 08:35 Respiratory Rate 18 08/25/19 08:35 Blood Pressure 105/61 08/25/19 08:35 O2 Sat by Pulse Oximetry (%) 98 08/24/19 21:43 Laboratory Tests 08/21/19 08/24/19 08/24/19 19:00 08:00 08:00 WBC 6.5 RBC 5.04 Hgb 13.8 Hct 42.6 MCV 84.5 MCH 27.4 MCHC 32.4 RDW 17.8 H Plt Count 254 MPV 9.2 Sodium 143 Potassium 4.4 Chloride 106 Carbon Dioxide 31 Anion Gap 5 L BUN 7.2 Creatinine 0.9 Est GFR (CKD-EPI)AfAm 107.22 Est GFR (CKD-EPI)NonAf 92.51 Random Glucose 85 Calcium 8.8 Total Bilirubin 0.8 AST 12 L ALT 14 Alkaline Phosphatase 78 Total Protein 5.7 L Albumin 2.7 L COVID-19 (ROSEANNE) Not detected labs noted aaox3 ambulating no acute distress lungs CTA - Treatment Hospital Course: Detox Protocol Followed, Detoxed Safely, Responded well, Discharged Condition Good, Rehab Referral Accepted - Medication Discharge Medications: Ambulatory Orders NK [No Known Home Medication] 08/21/19 - Diagnosis (1) Arthritis of both knees Current Visit: Yes Status: Chronic (2) History of head injury Current Visit: Yes Status: Acute (3) History of subdural hematoma (post traumatic) Current Visit: Yes Status: Acute (4) Alcohol dependence with uncomplicated withdrawal Current Visit: Yes Status: Chronic (5) Asthma Current Visit: Yes Status: Chronic Qualifiers: Asthma severity: mild Asthma persistence: unspecified Asthma complication type: unspecified Qualified Code(s): J45.909 - Unspecified asthma, uncomplicated (6) COPD (chronic obstructive pulmonary disease) Current Visit: Yes Status: Chronic Qualifiers: Emphysema type: unspecified (7) Nicotine dependence Current Visit: Yes Status: Chronic Qualifiers: Nicotine product type: cigarettes Substance use status: uncomplicated Qualified Code(s): F17.210 - Nicotine dependence, cigarettes, uncomplicated - AMA Did Patient Leave Against Medical Advice: No
[2019-08-26] MEDS ORDERED: chlordiazePOXIDE HCL 10 MG CAPSULE PO ONE (05:00)
== END 2019-08-25 11:22 | disposition home or self-care (01) | DRG 775 ==
LOC: YASAS 12:56 → Y6N 18:43
PROVIDERS: ADMIT Allergy & Immunology; ATTEND Allergy & Immunology
PROC: HZ2ZZZZ Detoxification Services for Substance Abuse Treatment (ICD-10-PCS; principal; 2019-08-21)
DX: F10.230 Alcohol dependence with withdrawal, uncomplicated (principal); F12.10 Cannabis abuse, uncomplicated; F17.210 Nicotine dependence, cigarettes, uncomplicated; J44.9 Chronic obstructive pulmonary disease, unspecified; J45.909 Unspecified asthma, uncomplicated; M17.0 Bilateral primary osteoarthritis of knee; Z87.820 Personal history of traumatic brain injury; Z99.89 Dependence on other enabling machines and devices; Z88.0 Allergy status to penicillin; Z91.018 Allergy to other foods
CPT/HCPCS: 36415; 80053; 85027; Q0162; U0003

== ENCOUNTER 2019-09-29 09:06 | Inpatient (IN) | payer OTHER ==
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
[2019-09-29 10:38] VITALS: BMI 27.8
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
[2019-09-29] MEDS ORDERED: MAGNESIUM HYDROX 2400MG/30ML ORAL SUSPENSION 30 ML CUP PO PRN (11:12)
[2019-09-29] MEDS ORDERED: MAGNESIUM CITRATE 300 ML BOTTLE PO PRN (11:12)
[2019-09-29] MEDS ORDERED: MENTHOL/PHENOL 1 EACH UD MM PRN (11:12)
[2019-09-29] MEDS ORDERED: NICOTINE POLACRILEX 2 MG GUM BUC PRN (11:12)
[2019-09-29] MEDS ORDERED: IBUPROFEN 400 MG TABLET (FP) PO PRN (11:12)
[2019-09-29] MEDS ORDERED: METHOCARBAMOL 500 MG TABLET PO PRN (11:12)
[2019-09-29] MEDS ORDERED: MAG HYDROX/AL HYDROX/SIMETH 30 ML UNIT-DOSE CUP PO PRN (11:12)
[2019-09-29] MEDS ORDERED: BISMUTH SUBSALICYLATE 262 MG/15 ML BTL PO PRN (11:12)
[2019-09-29] MEDS ORDERED: ONDANSETRON *ODT* 4 MG TABLET SL PRN (11:12)
[2019-09-29] MEDS ORDERED: chlordiazePOXIDE HCL 25 MG CAPSULE PO PRN (11:12)
[2019-09-29] MEDS ORDERED: ACETAMINOPHEN 325 MG TABLET (FP) PO PRN ×2 (11:12)
[2019-09-29] MEDS ORDERED: hydrOXYzine PAMOATE 25 MG CAPSULE (FP) PO PRN (12:58)
[2019-09-29] MEDS ORDERED: hydrOXYzine PAMOATE 25 MG CAPSULE (FP) PO SCH (14:00)
[2019-09-29 15:16] LABS: ALBUMIN 3.6 g/dl (3.4-5.0); BILIRUBIN,TOTAL 0.6 mg/dL (0.2-1); BLOOD UREA NITROGEN 16.1 mg/dL (7-18); CALCIUM 8.4 mg/dL (8.5-10.1); CREATININE 1.2 mg/dL (0.55-1.3); POTASSIUM 3.8 mmol/L (3.5-5.1); TOT PROT 6.6 g/dl (6.4-8.2)
[2019-09-29 15:23] LABS: HEMATOCRIT 41.5 % (35.4-49); HEMOGLOBIN 13.5 GM/dL (11.7-16.9); MCH 27.4 pg (25.7-33.7); MCHC 32.5 g/dl (32.0-35.9); MEAN CELL VOLUME 84.3 fl (80-96); MEAN PLT VOLUME 9.3 fl (7.5-11.1); PLATELET COUNT 255 K/MM3 (134-434); RBC 4.93 M/mm3 (4.00-5.60); WHITE BLOOD COUNT 6.4 K/mm3 (4.0-10.0)
[2019-09-29] MEDS: chlordiazePOXIDE HCL 25 MG CAPSULE PO SCH ×2 (18:00→22:19)
[2019-09-29] MEDS: MELATONIN 5 MG TABLETS PO SCH (22:19)
[2019-09-29] MEDS: THIAMINE HCL 100 MG TABLET (FP) PO SCH (22:19)
[2019-09-30] MEDS: chlordiazePOXIDE HCL 25 MG CAPSULE PO SCH ×4 (08:33→22:39)
--- NOTE | 2019-09-30 09:52 | PN ---
[facility] CIWA - CIWA Score Nausea/Vomitin-No Nausea/No Vomiting Muscle Tremors: 3 Anxiety: 2 Agitation: 3 Paroxysmal Sweats: 2 Orientation: 0-Oriented Tacttile Disturbances: 0-None Auditory Disturbances: 0-None Visual Disturbances: 0-None Headache: 0-None Present CIWA-Ar Total Score: 10 S Progress Note (SOAP) Subjective: sweats shakes interrupted sleep body aches tired headache Objective: 09/30/19 09:51 Vital Signs Temperature 99.3 F 09/30/19 09:42 Pulse Rate 68 09/30/19 09:42 Respiratory Rate 18 09/30/19 09:42 Blood Pressure 108/59 L 09/30/19 09:42 O2 Sat by Pulse Oximetry (%) 95 09/30/19 06:03 Laboratory Tests 09/29/19 09/29/19 09/29/19 11:07 11:07 11:07 WBC 6.4 RBC 4.93 Hgb 13.5 Hct 41.5 MCV 84.3 MCH 27.4 MCHC 32.5 RDW 18.0 H Plt Count 255 MPV 9.3 Sodium 142 Potassium 3.8 Chloride 106 Carbon Dioxide 25 Anion Gap 11 BUN 16.1 Creatinine 1.2 Est GFR (CKD-EPI)AfAm 75.72 Est GFR (CKD-EPI)NonAf 65.33 Random Glucose 93 Calcium 8.4 L Total Bilirubin 0.6 AST 23 ALT 27 Alkaline Phosphatase 65 Total Protein 6.6 Albumin 3.6 Syphilis Serology Reactive A* COVID-19 (ROSEANNE) 09/29/19 11:07 WBC RBC Hgb Hct MCV MCH MCHC RDW Plt Count MPV Sodium Potassium Chloride Carbon Dioxide Anion Gap BUN Creatinine Est GFR (CKD-EPI)AfAm Est GFR (CKD-EPI)NonAf Random Glucose Calcium Total Bilirubin AST ALT Alkaline Phosphatase Total Protein Albumin Syphilis Serology COVID-19 (ROSEANNE) Not detected labs noted rpr pending aaox3 lying in bed no acute distress Assessment: 09/30/19 09:51 withdrawals Plan: continue detox increase fluids pending lab results
[2019-09-30] MEDS: PRENATAL VITAMINS W/ FOLIC ACID TABLET (FP) PO SCH (12:27)
[2019-09-30] MEDS: NICOTINE 7 MG/24 HOURS TOPICAL PATCH TD SCH (12:27)
[2019-09-30] MEDS ORDERED: MASKS NR ONE (15:42)
[2019-09-30] MEDS: MELATONIN 5 MG TABLETS PO SCH (22:39)
[2019-09-30] MEDS: THIAMINE HCL 100 MG TABLET (FP) PO SCH (22:39)
[2019-10-01] MEDS: chlordiazePOXIDE HCL 25 MG CAPSULE PO SCH ×2 (06:41→10:51)
[2019-10-01] MEDS: NICOTINE 7 MG/24 HOURS TOPICAL PATCH TD SCH (10:51)
[2019-10-01] MEDS: PRENATAL VITAMINS W/ FOLIC ACID TABLET (FP) PO SCH (10:52)
--- NOTE | 2019-10-01 13:56 | PN ---
[facility] CIWA - CIWA Score Nausea/Vomitin-No Nausea/No Vomiting Muscle Tremors: 2 Anxiety: 1-Mildly Anxious Agitation: 2 Paroxysmal Sweats: No Perspiration Orientation: 0-Oriented Tacttile Disturbances: 0-None Auditory Disturbances: 0-None Visual Disturbances: 0-None Headache: 0-None Present CIWA-Ar Total Score: 5 BHS Progress Note (SOAP) Subjective: arthritis to my knee sweats medication is too strong Objective: 10/01/19 13:54 Vital Signs Temperature 97.3 F L 10/01/19 08:55 Pulse Rate 106 H 10/01/19 08:55 Respiratory Rate 19 10/01/19 08:55 Blood Pressure 109/73 10/01/19 08:55 O2 Sat by Pulse Oximetry (%) 95 10/01/19 08:55 Laboratory Tests 09/29/19 09/29/19 09/29/19 11:07 11:07 11:07 WBC 6.4 RBC 4.93 Hgb 13.5 Hct 41.5 MCV 84.3 MCH 27.4 MCHC 32.5 RDW 18.0 H Plt Count 255 MPV 9.3 Sodium 142 Potassium 3.8 Chloride 106 Carbon Dioxide 25 Anion Gap 11 BUN 16.1 Creatinine 1.2 Est GFR (CKD-EPI)AfAm 75.72 Est GFR (CKD-EPI)NonAf 65.33 Random Glucose 93 Calcium 8.4 L Total Bilirubin 0.6 AST 23 ALT 27 Alkaline Phosphatase 65 Total Protein 6.6 Albumin 3.6 Syphilis Serology Reactive A* RPR Titer COVID-19 (ROSEANNE) 09/29/19 09/29/19 11:07 11:07 WBC RBC Hgb Hct MCV MCH MCHC RDW Plt Count MPV Sodium Potassium Chloride Carbon Dioxide Anion Gap BUN Creatinine Est GFR (CKD-EPI)AfAm Est GFR (CKD-EPI)NonAf Random Glucose Calcium Total Bilirubin AST ALT Alkaline Phosphatase Total Protein Albumin Syphilis Serology RPR Titer Reactive 1:1 H D COVID-19 (ROSEANNE) Not detected aaox3 ambulating no acute distress Assessment: 10/01/19 13:54 mild withdrawals librium modified and pt in agreement Plan: continue with modified taper increase fluids motrin/tylenol prn
[2019-10-01] MEDS: chlordiazePOXIDE 5 MG CAPSULE PO SCH ×3 (15:11→22:03)
[2019-10-01] MEDS: THIAMINE HCL 100 MG TABLET (FP) PO SCH (22:03)
[2019-10-01] MEDS: MELATONIN 5 MG TABLETS PO SCH (22:06)
[2019-10-02] MEDS ORDERED: chlordiazePOXIDE HCL 10 MG CAPSULE PO PRN
[2019-10-02] MEDS: chlordiazePOXIDE HCL 10 MG CAPSULE PO SCH ×3 (06:02→18:22)
[2019-10-02] MEDS: NICOTINE 7 MG/24 HOURS TOPICAL PATCH TD SCH (10:20)
[2019-10-02] MEDS: PRENATAL VITAMINS W/ FOLIC ACID TABLET (FP) PO SCH (10:21)
--- NOTE | 2019-10-02 15:13 | PN ---
[facility] CIWA - CIWA Score Nausea/Vomitin-No Nausea/No Vomiting Muscle Tremors: 2 Anxiety: 3 Agitation: 0-Normal Activity Paroxysmal Sweats: 2 Orientation: 0-Oriented Tacttile Disturbances: 1-Very Mild Itch/Numbness Auditory Disturbances: 0-None Visual Disturbances: 2-Mild Sensitivity Headache: 0-None Present CIWA-Ar Total Score: 10 BHS Progress Note (SOAP) Subjective: Anxious, Fatigue, Sweating. Objective: Patient A & O X 3, Observed Ambulating on Detox Unit Unassisted. In No Acute Distress. 10/02/19 15:09 Vital Signs Temperature 97.1 F L 10/02/19 14:52 Pulse Rate 86 10/02/19 14:52 Respiratory Rate 18 10/02/19 14:52 Blood Pressure 94/60 10/02/19 14:52 O2 Sat by Pulse Oximetry (%) 97 10/02/19 14:52 Laboratory Tests 09/29/19 09/29/19 09/29/19 11:07 11:07 11:07 WBC 6.4 RBC 4.93 Hgb 13.5 Hct 41.5 MCV 84.3 MCH 27.4 MCHC 32.5 RDW 18.0 H Plt Count 255 MPV 9.3 Sodium 142 Potassium 3.8 Chloride 106 Carbon Dioxide 25 Anion Gap 11 BUN 16.1 Creatinine 1.2 Est GFR (CKD-EPI)AfAm 75.72 Est GFR (CKD-EPI)NonAf 65.33 Random Glucose 93 Calcium 8.4 L Total Bilirubin 0.6 AST 23 ALT 27 Alkaline Phosphatase 65 Total Protein 6.6 Albumin 3.6 Syphilis Serology Reactive A* RPR Titer COVID-19 (ROSEANNE) 09/29/19 09/29/19 11:07 11:07 WBC RBC Hgb Hct MCV MCH MCHC RDW Plt Count MPV Sodium Potassium Chloride Carbon Dioxide Anion Gap BUN Creatinine Est GFR (CKD-EPI)AfAm Est GFR (CKD-EPI)NonAf Random Glucose Calcium Total Bilirubin AST ALT Alkaline Phosphatase Total Protein Albumin Syphilis Serology RPR Titer Reactive 1:1 H D COVID-19 (ROSEANNE) Not detected Lab Results noted. Syphilis Serology Result noted: Reactive. RPR titer Result: Reactive 1:1 Patient denies known history of diagnosis of Syphilis diagnosis / treatment. 10/02/19 15:10 Assessment: 10/02/19 15:10 WITHDRAWAL SYMPTOMS. REACTIVE RPR. Plan: Continue Detox. As Patient is allergic to Penicillin, Doxycycline, 100 mg BID X 14 days ordered for treatment for Reactive RPR / Syphilis Serology Results. Patient advised to follow-up with Primary Care Medical Provider for follow-up evalaution for this condition after discharge form Detox. Patient verbalized understanding of recommendation.
[2019-10-02] MEDS: DOXYCYCLINE HYCLATE 100 MG CAPSULE PO SCH (22:45)
[2019-10-02] MEDS: THIAMINE HCL 100 MG TABLET (FP) PO SCH (22:49)
[2019-10-02] MEDS: MELATONIN 5 MG TABLETS PO SCH (22:49)
[2019-10-03] MEDS: chlordiazePOXIDE HCL 10 MG CAPSULE PO SCH ×2 (06:31→17:48)
[2019-10-03] MEDS ORDERED: MASKS NR ONE (06:31)
[2019-10-03] MEDS: DOXYCYCLINE HYCLATE 100 MG CAPSULE PO SCH ×2 (10:19→17:47)
[2019-10-03] MEDS: PRENATAL VITAMINS W/ FOLIC ACID TABLET (FP) PO SCH (10:20)
[2019-10-03] MEDS: NICOTINE 7 MG/24 HOURS TOPICAL PATCH TD SCH (10:20)
--- NOTE | 2019-10-03 18:09 | PN ---
S CIWA - CIWA Score Nausea/Vomitin-No Nausea/No Vomiting Muscle Tremors: None Anxiety: 2 Agitation: 2 Paroxysmal Sweats: No Perspiration Orientation: 0-Oriented Tacttile Disturbances: 0-None Auditory Disturbances: 0-None Visual Disturbances: 0-None Headache: 0-None Present CIWA-Ar Total Score: 4 BHS Progress Note (SOAP) Subjective: Feels ok Objective: 10/03/19 18:08 Last Vital Signs Temp Pulse Resp BP Pulse Ox 97.2 F L 70 18 119/65 97 10/03/19 13:12 10/03/19 13:12 10/03/19 13:12 10/03/19 13:12 10/03/19 13:12 Laboratory Tests 09/29/19 09/29/19 09/29/19 11:07 11:07 11:07 WBC 6.4 RBC 4.93 Hgb 13.5 Hct 41.5 MCV 84.3 MCH 27.4 MCHC 32.5 RDW 18.0 H Plt Count 255 MPV 9.3 Sodium 142 Potassium 3.8 Chloride 106 Carbon Dioxide 25 Anion Gap 11 BUN 16.1 Creatinine 1.2 Est GFR (CKD-EPI)AfAm 75.72 Est GFR (CKD-EPI)NonAf 65.33 Random Glucose 93 Calcium 8.4 L Total Bilirubin 0.6 AST 23 ALT 27 Alkaline Phosphatase 65 Total Protein 6.6 Albumin 3.6 Syphilis Serology Reactive A* RPR Titer COVID-19 (ROSEANNE) 09/29/19 09/29/19 11:07 11:07 WBC RBC Hgb Hct MCV MCH MCHC RDW Plt Count MPV Sodium Potassium Chloride Carbon Dioxide Anion Gap BUN Creatinine Est GFR (CKD-EPI)AfAm Est GFR (CKD-EPI)NonAf Random Glucose Calcium Total Bilirubin AST ALT Alkaline Phosphatase Total Protein Albumin Syphilis Serology RPR Titer Reactive 1:1 H D COVID-19 (ROSEANNE) Not detected Labs reviewed: syphilis noted Assessment: 10/03/19 18:08 Withdrawal sxs Plan: Continue detox Encourage PO water hydration On doxycycline for latent syphilis, patient to follow up with PCP
[2019-10-03] MEDS: THIAMINE HCL 100 MG TABLET (FP) PO SCH (23:00)
[2019-10-03] MEDS: MELATONIN 5 MG TABLETS PO SCH (23:00)
[2019-10-04] MEDS ORDERED: chlordiazePOXIDE HCL 10 MG CAPSULE PO ONE (05:00)
[2019-10-04 05:59] VITALS: BP 108/67; PULSE 62; TEMP 96.8
--- NOTE | 2019-10-04 09:13 | DS ---
[facility] Detox Discharge Summary Admission Date: 09/29/19 Discharge Date: 10/04/19 - History Present History: Alcohol Dependence - Physical Exam Results Vital Signs: Vital Signs Temperature 96.8 F L 10/04/19 05:24 Pulse Rate 62 10/04/19 05:24 Respiratory Rate 16 10/04/19 05:24 Blood Pressure 108/67 10/04/19 05:24 O2 Sat by Pulse Oximetry (%) 95 10/04/19 05:24 Pertinent Admission Physical Exam Findings: Vital Signs Temperature 96.8 F L 10/04/19 05:24 Pulse Rate 62 10/04/19 05:24 Respiratory Rate 16 10/04/19 05:24 Blood Pressure 108/67 10/04/19 05:24 O2 Sat by Pulse Oximetry (%) 95 10/04/19 05:24 Laboratory Tests 09/29/19 09/29/19 09/29/19 11:07 11:07 11:07 WBC 6.4 RBC 4.93 Hgb 13.5 Hct 41.5 MCV 84.3 MCH 27.4 MCHC 32.5 RDW 18.0 H Plt Count 255 MPV 9.3 Sodium 142 Potassium 3.8 Chloride 106 Carbon Dioxide 25 Anion Gap 11 BUN 16.1 Creatinine 1.2 Est GFR (CKD-EPI)AfAm 75.72 Est GFR (CKD-EPI)NonAf 65.33 Random Glucose 93 Calcium 8.4 L Total Bilirubin 0.6 AST 23 ALT 27 Alkaline Phosphatase 65 Total Protein 6.6 Albumin 3.6 Syphilis Serology Reactive A* RPR Titer COVID-19 (ROSEANNE) 09/29/19 09/29/19 11:07 11:07 WBC RBC Hgb Hct MCV MCH MCHC RDW Plt Count MPV Sodium Potassium Chloride Carbon Dioxide Anion Gap BUN Creatinine Est GFR (CKD-EPI)AfAm Est GFR (CKD-EPI)NonAf Random Glucose Calcium Total Bilirubin AST ALT Alkaline Phosphatase Total Protein Albumin Syphilis Serology RPR Titer Reactive 1:1 H D COVID-19 (ROSEANNE) Not detected aaox3 ambulating no acute distress lungs CTA - Treatment Hospital Course: Detox Protocol Followed, Detoxed Safely, Responded well, Discharged Condition Good, Rehab Referral Accepted - Medication Discharge Medications: Ambulatory Orders NK [No Known Home Medication] 08/21/19 - Diagnosis (1) Alcohol dependence with uncomplicated withdrawal Current Visit: Yes Status: Chronic (2) Nicotine dependence Current Visit: Yes Status: Chronic Qualifiers: Nicotine product type: cigarettes Substance use status: uncomplicated Qualified Code(s): F17.210 - Nicotine dependence, cigarettes, uncomplicated (3) Positive RPR test Current Visit: Yes Status: Acute (4) Arthritis of both knees Current Visit: Yes Status: Chronic (5) History of head injury Current Visit: No Status: Acute (6) History of subdural hematoma (post traumatic) Current Visit: No Status: Acute (7) Asthma Current Visit: Yes Status: Chronic Qualifiers: Asthma severity: mild Asthma persistence: unspecified Asthma complication type: unspecified Qualified Code(s): J45.909 - Unspecified asthma, uncomplicated (8) COPD (chronic obstructive pulmonary disease) Current Visit: No Status: Chronic Qualifiers: Emphysema type: unspecified - AMA Did Patient Leave Against Medical Advice: No
[2019-10-04] MEDS: DOXYCYCLINE HYCLATE 100 MG CAPSULE PO SCH (10:33)
[2019-10-04] MEDS: NICOTINE 7 MG/24 HOURS TOPICAL PATCH TD SCH (10:33)
[2019-10-04] MEDS: PRENATAL VITAMINS W/ FOLIC ACID TABLET (FP) PO SCH (10:33)
[2019-10-04] MEDS ORDERED: DOXYCYCLINE HYCLATE 100 MG TABLET PO SCH (11:01)
== END 2019-10-04 14:55 | disposition other institution (70) | DRG 775 ==
LOC: YASAS 09:06 → Y6N 10:41
PROVIDERS: ADMIT Allergy & Immunology; ATTEND Allergy & Immunology
PROC: HZ2ZZZZ Detoxification Services for Substance Abuse Treatment (ICD-10-PCS; principal; 2019-09-29)
DX: F10.230 Alcohol dependence with withdrawal, uncomplicated (principal); F12.10 Cannabis abuse, uncomplicated; F17.210 Nicotine dependence, cigarettes, uncomplicated; J44.9 Chronic obstructive pulmonary disease, unspecified; A53.0 Latent syphilis, unspecified as early or late; M17.0 Bilateral primary osteoarthritis of knee; R76.11 Nonspecific reaction to tuberculin skin test without active tuberculosis; Z79.2 Long term (current) use of antibiotics; Z87.820 Personal history of traumatic brain injury; Z88.0 Allergy status to penicillin; Z91.018 Allergy to other foods
CPT/HCPCS: 36415; 80053; 85027; 86593; 86780; U0003

== ENCOUNTER 2019-10-04 15:01 | Inpatient (IN) | payer OTHER ==
--- NOTE | 2019-10-04 13:06 | HP ---
[facility] Rehab Assess/Revision - Admission History Admitted to Rehab from: [facility] [address] [facility] - Findings Detox History & Physical reviewed: Yes Concur with findings: Yes Inpatient Rehab Admission - Rehab Decision to Admit Inpatient rehab admission?: Yes - Initial Determination Are CD services needed?: Yes Free of communicable disease: Yes Not in need of hospitalization: Yes - Rehab Admission Criteria Previous failed treatment: Yes Poor recovery environment: Yes Comorbidities: Yes Lacks judgement: Yes Patient is meeting Inpatient Rehab admission criteria:: Yes
[~2019-10-04 15:01] MED LIST: ACETAMINOPHEN 325 MG TABLET (FP) PO PRN; IBUPROFEN 400 MG TABLET (FP) PO PRN; LOPERAMIDE HCL 2 MG CAPSULE PO PRN; MAG HYDROX/AL HYDROX/SIMETH 30 ML UNIT-DOSE CUP PO PRN; MAGNESIUM CITRATE 300 ML BOTTLE PO PRN; MAGNESIUM HYDROX 2400MG/30ML ORAL SUSPENSION 30 ML CUP PO PRN; MENTHOL/PHENOL 1 EACH UD MM PRN; NICOTINE POLACRILEX 2 MG GUM BUC PRN; P-EPHED 60MG/TRIPROLIDI 2.5MG TABLET PO PRN; guaiFENesin 200 MG/10 ML 10 ML UNIT-DOSE CUPS PO PRN; hydrOXYzine PAMOATE 25 MG CAPSULE (FP) PO PRN
[2019-10-04] MEDS ORDERED: MASKS NR ONE (17:07)
[2019-10-04] MEDS: DOXYCYCLINE HYCLATE 100 MG TABLET PO SCH (17:47)
[2019-10-04] MEDS: THIAMINE HCL 100 MG TABLET (FP) PO SCH (21:59)
[2019-10-04] MEDS: MELATONIN 5 MG TABLETS PO SCH (21:59)
[2019-10-05] MEDS: PRENATAL VITAMINS W/ FOLIC ACID TABLET (FP) PO SCH (10:34)
[2019-10-05] MEDS: DOXYCYCLINE HYCLATE 100 MG TABLET PO SCH ×2 (10:34→17:09)
[2019-10-05] MEDS: NICOTINE 21 MG/24 HOURS TOPICAL PATCH TD SCH (10:34)
--- NOTE | 2019-10-05 11:06 | PN ---
[facility] Progress Note Note: Pt is a 59 y/o male admitted to rehab from detox [address] [place] [address]. Report given by provider Aguila from detox, pt started on Doxicycline 100 mg po BID x 28 days in detox(first dose 10/02/19 @1800) for syphilis reactivity. Denied previous knowledge of infection. Vital Signs - 24 hr 10/04/19 10/04/19 10/05/19 15:07 20:14 06:40 Temperature 97.7 F 97.5 F L Pulse Rate 75 63 Respiratory 18 16 Rate Blood Pressure 110/66 114/68 O2 Sat by Pulse 95 95 95 Oximetry (%) alert o x 3 nad oob ambulating with steady gait s/p detox cont rehab
[2019-10-05] MEDS: MELATONIN 5 MG TABLETS PO SCH (22:12)
[2019-10-05] MEDS: THIAMINE HCL 100 MG TABLET (FP) PO SCH (22:12)
[2019-10-06] MEDS: PRENATAL VITAMINS W/ FOLIC ACID TABLET (FP) PO SCH (10:19)
[2019-10-06] MEDS: NICOTINE 21 MG/24 HOURS TOPICAL PATCH TD SCH (10:19)
[2019-10-06] MEDS: DOXYCYCLINE HYCLATE 100 MG TABLET PO SCH ×2 (10:19→17:08)
[2019-10-06] MEDS: THIAMINE HCL 100 MG TABLET (FP) PO SCH (22:49)
[2019-10-06] MEDS: MELATONIN 5 MG TABLETS PO SCH (22:49)
[2019-10-07] MEDS: PRENATAL VITAMINS W/ FOLIC ACID TABLET (FP) PO SCH (10:40)
[2019-10-07] MEDS: NICOTINE 21 MG/24 HOURS TOPICAL PATCH TD SCH (10:41)
[2019-10-07] MEDS: DOXYCYCLINE HYCLATE 100 MG TABLET PO SCH ×2 (10:41→17:19)
[2019-10-07] MEDS: MELATONIN 5 MG TABLETS PO SCH (21:24)
[2019-10-07] MEDS: THIAMINE HCL 100 MG TABLET (FP) PO SCH (21:24)
[2019-10-08] MEDS: NICOTINE 21 MG/24 HOURS TOPICAL PATCH TD SCH (10:43)
[2019-10-08] MEDS: PRENATAL VITAMINS W/ FOLIC ACID TABLET (FP) PO SCH (10:43)
[2019-10-08] MEDS: DOXYCYCLINE HYCLATE 100 MG TABLET PO SCH ×2 (10:43→17:46)
[2019-10-08] MEDS: THIAMINE HCL 100 MG TABLET (FP) PO SCH (21:55)
[2019-10-08] MEDS: MELATONIN 5 MG TABLETS PO SCH (21:56)
[2019-10-09] MEDS: PRENATAL VITAMINS W/ FOLIC ACID TABLET (FP) PO SCH (09:53)
[2019-10-09] MEDS: NICOTINE 21 MG/24 HOURS TOPICAL PATCH TD SCH (09:53)
[2019-10-09] MEDS: DOXYCYCLINE HYCLATE 100 MG TABLET PO SCH ×2 (09:53→17:01)
[2019-10-09] MEDS: THIAMINE HCL 100 MG TABLET (FP) PO SCH (21:25)
[2019-10-09] MEDS: MELATONIN 5 MG TABLETS PO SCH (21:25)
[2019-10-10] MEDS: DOXYCYCLINE HYCLATE 100 MG TABLET PO SCH ×2 (09:46→19:18)
[2019-10-10] MEDS: NICOTINE 21 MG/24 HOURS TOPICAL PATCH TD SCH (09:47)
[2019-10-10] MEDS: PRENATAL VITAMINS W/ FOLIC ACID TABLET (FP) PO SCH (09:47)
[2019-10-10] MEDS: THIAMINE HCL 100 MG TABLET (FP) PO SCH (21:46)
[2019-10-10] MEDS: METHYL SALICYLATE/MENTHOL OINT 30 GM TUBE TP SCH (21:47)
[2019-10-10] MEDS: MELATONIN 5 MG TABLETS PO SCH (21:47)
[2019-10-11] MEDS: NICOTINE 21 MG/24 HOURS TOPICAL PATCH TD SCH (09:22)
[2019-10-11] MEDS: PRENATAL VITAMINS W/ FOLIC ACID TABLET (FP) PO SCH (09:22)
[2019-10-11] MEDS: DOXYCYCLINE HYCLATE 100 MG TABLET PO SCH ×2 (09:22→18:01)
[2019-10-11] MEDS: METHYL SALICYLATE/MENTHOL OINT 30 GM TUBE TP SCH ×2 (09:23→21:25)
[2019-10-11] MEDS: THIAMINE HCL 100 MG TABLET (FP) PO SCH (21:24)
[2019-10-11] MEDS: MELATONIN 5 MG TABLETS PO SCH (21:25)
[2019-10-12] MEDS: DOXYCYCLINE HYCLATE 100 MG TABLET PO SCH ×2 (10:31→17:35)
[2019-10-12] MEDS: PRENATAL VITAMINS W/ FOLIC ACID TABLET (FP) PO SCH (10:31)
[2019-10-12] MEDS: NICOTINE 21 MG/24 HOURS TOPICAL PATCH TD SCH (10:31)
[2019-10-12] MEDS: METHYL SALICYLATE/MENTHOL OINT 30 GM TUBE TP SCH ×2 (10:32→21:14)
[2019-10-12] MEDS: MELATONIN 5 MG TABLETS PO SCH (21:14)
[2019-10-12] MEDS: THIAMINE HCL 100 MG TABLET (FP) PO SCH (21:14)
[2019-10-13] MEDS: PRENATAL VITAMINS W/ FOLIC ACID TABLET (FP) PO SCH (10:32)
[2019-10-13] MEDS: DOXYCYCLINE HYCLATE 100 MG TABLET PO SCH ×2 (10:32→17:35)
[2019-10-13] MEDS: METHYL SALICYLATE/MENTHOL OINT 30 GM TUBE TP SCH ×2 (10:33→21:15)
[2019-10-13] MEDS: NICOTINE 21 MG/24 HOURS TOPICAL PATCH TD SCH (10:33)
[2019-10-13] MEDS: THIAMINE HCL 100 MG TABLET (FP) PO SCH (21:15)
[2019-10-13] MEDS: MELATONIN 5 MG TABLETS PO SCH (21:16)
[2019-10-14] MEDS: NICOTINE 21 MG/24 HOURS TOPICAL PATCH TD SCH (10:15)
[2019-10-14] MEDS: PRENATAL VITAMINS W/ FOLIC ACID TABLET (FP) PO SCH (10:15)
[2019-10-14] MEDS: DOXYCYCLINE HYCLATE 100 MG TABLET PO SCH ×2 (10:15→17:32)
[2019-10-14] MEDS: METHYL SALICYLATE/MENTHOL OINT 30 GM TUBE TP SCH ×2 (10:15→21:45)
[2019-10-14] MEDS: MELATONIN 5 MG TABLETS PO SCH (21:44)
[2019-10-14] MEDS: THIAMINE HCL 100 MG TABLET (FP) PO SCH (21:45)
[2019-10-15] MEDS: NICOTINE 21 MG/24 HOURS TOPICAL PATCH TD SCH (09:44)
[2019-10-15] MEDS: PRENATAL VITAMINS W/ FOLIC ACID TABLET (FP) PO SCH (09:44)
[2019-10-15] MEDS: DOXYCYCLINE HYCLATE 100 MG TABLET PO SCH ×2 (09:44→17:41)
[2019-10-15] MEDS: METHYL SALICYLATE/MENTHOL OINT 30 GM TUBE TP SCH ×2 (09:44→21:20)
[2019-10-15] MEDS: THIAMINE HCL 100 MG TABLET (FP) PO SCH (21:19)
[2019-10-15] MEDS: MELATONIN 5 MG TABLETS PO SCH (21:19)
[2019-10-16] MEDS: METHYL SALICYLATE/MENTHOL OINT 30 GM TUBE TP SCH ×2 (09:51→21:58)
[2019-10-16] MEDS: PRENATAL VITAMINS W/ FOLIC ACID TABLET (FP) PO SCH (09:51)
[2019-10-16] MEDS: NICOTINE 21 MG/24 HOURS TOPICAL PATCH TD SCH (09:51)
[2019-10-16] MEDS: DOXYCYCLINE HYCLATE 100 MG TABLET PO SCH ×2 (09:52→17:22)
[2019-10-16] MEDS: THIAMINE HCL 100 MG TABLET (FP) PO SCH (21:59)
[2019-10-16] MEDS: MELATONIN 5 MG TABLETS PO SCH (21:59)
[2019-10-17] MEDS ORDERED: MASKS NR ONE (06:27)
[2019-10-17 07:15] VITALS: TEMP 97.8
[2019-10-17] MEDS: METHYL SALICYLATE/MENTHOL OINT 30 GM TUBE TP SCH ×2 (09:42→21:59)
[2019-10-17] MEDS: NICOTINE 21 MG/24 HOURS TOPICAL PATCH TD SCH (09:42)
[2019-10-17] MEDS: PRENATAL VITAMINS W/ FOLIC ACID TABLET (FP) PO SCH (09:42)
[2019-10-17] MEDS: DOXYCYCLINE HYCLATE 100 MG TABLET PO SCH ×2 (09:43→17:46)
[2019-10-17] MEDS: MELATONIN 5 MG TABLETS PO SCH (21:59)
[2019-10-17] MEDS: THIAMINE HCL 100 MG TABLET (FP) PO SCH (21:59)
[2019-10-18 09:52] VITALS: BP 144/74; PULSE 50
--- NOTE | 2019-10-18 13:54 | DS ---
[facility] Rehab Discharge Summary - [facility] Rehab Discharge Summary Admission Date: 10/04/19 Discharge Date: 10/18/19 - History Present History: Alcohol dependence Pertinent Past History: Asthma(no med) COPD(no med) Arthritis - Discharge Physical Exam Vital Signs: Vital Signs Temperature 97.8 F 10/18/19 05:25 Pulse Rate 50 L 10/18/19 09:06 Respiratory Rate 20 10/18/19 09:06 Blood Pressure 144/74 10/18/19 09:06 O2 Sat by Pulse Oximetry (%) 95 10/18/19 05:25 Alert o x 3 nad oob ambulating with steady gait/uses cane cardiac:s1 s2,rrr lungs:ctab abdomen:soft,+bs, nt,nd extremities:no edema,skin intact. Pertinent Admission Physical Exam Findings: Pt is a 59 y/o male admitted to rehab from [address] Report given by provider Aguila from [facility], pt started on Doxicycline 100 mg po BID x 28 days in detox(first dose 10/02/19 @1800) for syphilis reactivity. Denied previous knowledge of infection. - Treatment Discharge Condition: Discharge condition good, Rehabilitated safely, Responded well, Outpatient referral accepted Hospital Course: Pt who completed detox and referred to rehab discharging today after completion. Pt reports he has no primary care provider and goes to any Hospital near him. Pt has accepted CD aftercare to [facility]. - Medication Discharge Medications: Ambulatory Orders Doxycycline Hyclate [Vibratab -] 100 mg PO BID@1000,1800 #24 tablet 10/15/19 - Medication-Assisted Treatment (MAT) Medication-Assisted Treatment (MAT): No - Discharge Instructions Diet, activity, other medical instructions: Diet:Regular Activity:oob ad freedom Other medical instructions:Follow up with CD aftercare as scheduled. Follow up with primary care at [facility] as needed. - Diagnosis (1) Alcohol use disorder Status: Chronic (2) Positive RPR test Status: Acute (3) Arthritis of both knees Status: Chronic (4) Asthma Status: Chronic Qualifiers: Asthma severity: unspecified severity Asthma persistence: unspecified (5) COPD (chronic obstructive pulmonary disease) Status: Chronic Qualifiers: Emphysema type: unspecified (6) Nicotine dependence Status: Chronic Qualifiers: Nicotine product type: cigarettes Substance use status: uncomplicated Qualified Code(s): F17.210 - Nicotine dependence, cigarettes, uncomplicated - Follow-up Referral Minutes to complete discharge: 25 - AMA Did Patient Leave Against Medical Advice: No Additional Comments: Doxycycline 100 mg po BID #24 tabs transmitted to pt's pharmacy to [employer] after discharge and complete all doses.
== END 2019-10-18 08:30 | disposition home or self-care (01) | DRG 772 ==
LOC: YASAS 15:01 → Y5N 15:04
PROVIDERS: ADMIT Allergy & Immunology; ATTEND Allergy & Immunology
PROC: HZ42ZZZ Group Counseling for Substance Abuse Treatment, Cognitive-Behavioral (ICD-10-PCS; principal; 2019-10-04)
DX: F10.20 Alcohol dependence, uncomplicated (principal); F17.210 Nicotine dependence, cigarettes, uncomplicated; F44.9 Dissociative and conversion disorder, unspecified; A53.0 Latent syphilis, unspecified as early or late; M17.0 Bilateral primary osteoarthritis of knee; Z88.0 Allergy status to penicillin; Z91.018 Allergy to other foods

== ENCOUNTER 2019-10-28 08:59 | Inpatient (IN) | payer OTHER ==
--- NOTE | 2019-10-28 09:50 | BHS.RME ---
Substance Use & Tx History - Substance Use History Alcohol Substance amount: 1-2 pints Katina Frequency of use: Daily Substance route: Oral Date of Last Use: 10/27/19 (yesterday drank 3 gallons) Marijuana/Hashish Substance amount: 1 pound Frequency of use: Daily Substance route: Smoking Date of Last Use: 10/27/19 - Last Treatment Date of last treatment: 09/28-10/18/19 detox and rehab and completed but relapsed immediately Treatment type: Substance Use Disorder (SARIAH) Where was last treatment: Detox Physical/Psych/Mental Status - Behavior General Behavior: Decreased activity Eye Contact: Normal - Cooperativeness Cooperativeness: Cooperative - Thinking Thought Processes: Tight, Logical, Goal Directed - Physical Health Problems Is patient presently having any pain?: No Does patient presently have any injuries (include location): No Does patient currently have a fever: No Is patient : No CIWA Nausea/Vomitin Muscle Tremors: 3 Anxiety: 3 Agitation: 3 Paroxysmal Sweats: 4-Forehead w/Sweat Beads Orientation: 1-Uncertain about Date Tacttile Disturbances: 0-None Auditory Disturbances: 0-None Visual Disturbances: 2-Mild Sensitivity Headache: 4-Moderately Severe CIWA-Ar Total Score: 22
[2019-10-28 11:53] VITALS: BMI 28.5
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
[2019-10-28] MEDS ORDERED: ALBUTEROL SO4 HFA INHALER IH PRN (12:08)
[2019-10-28] MEDS ORDERED: IBUPROFEN 400 MG TABLET (FP) PO PRN (12:09)
[2019-10-28] MEDS ORDERED: METHOCARBAMOL 500 MG TABLET PO PRN (12:09)
[2019-10-28] MEDS ORDERED: MAG HYDROX/AL HYDROX/SIMETH 30 ML UNIT-DOSE CUP PO PRN (12:09)
[2019-10-28] MEDS ORDERED: ONDANSETRON *ODT* 4 MG TABLET SL PRN (12:09)
[2019-10-28] MEDS ORDERED: ACETAMINOPHEN 325 MG TABLET (FP) PO PRN ×2 (12:09)
[2019-10-28] MEDS ORDERED: MAGNESIUM HYDROX 2400MG/30ML ORAL SUSPENSION 30 ML CUP PO PRN (12:09)
[2019-10-28] MEDS ORDERED: chlordiazePOXIDE HCL 25 MG CAPSULE PO PRN (12:09)
[2019-10-28] MEDS ORDERED: NICOTINE POLACRILEX 2 MG GUM BUC PRN (12:09)
[2019-10-28] MEDS ORDERED: MENTHOL/PHENOL 1 EACH UD MM PRN (12:09)
[2019-10-28] MEDS ORDERED: MAGNESIUM CITRATE 300 ML BOTTLE PO PRN (12:09)
[2019-10-28] MEDS ORDERED: BISMUTH SUBSALICYLATE 524 MG/30 ML UD PO PRN (12:09)
[2019-10-28] MEDS: hydrOXYzine PAMOATE 25 MG CAPSULE (FP) PO SCH ×3 (13:05→22:54)
[2019-10-28 17:35] LABS: HEMOGLOBIN 13.6 GM/dL (11.7-16.9); MCH 27.3 pg (25.7-33.7); MCHC 32.3 g/dl (32.0-35.9); MEAN CELL VOLUME 84.6 fl (80-96); MEAN PLT VOLUME 9.3 fl (7.5-11.1); PLATELET COUNT 182 K/MM3 (134-434); RBC 4.97 M/mm3 (4.00-5.60); RDW 17.6 % (11.9-15.9); WHITE BLOOD COUNT 11.7 K/mm3 (4.0-10.0)
[2019-10-28 17:46] LABS: BILIRUBIN,TOTAL 0.7 mg/dL (0.2-1); BLOOD UREA NITROGEN 17.4 mg/dL (7-18); CALCIUM 8.4 mg/dL (8.5-10.1); CREATININE 1.1 mg/dL (0.55-1.3); POTASSIUM 4.1 mmol/L (3.5-5.1); TOT PROT 7.2 g/dl (6.4-8.2)
[2019-10-28] MEDS: chlordiazePOXIDE HCL 25 MG CAPSULE PO SCH ×2 (18:01→22:40)
[2019-10-28] MEDS: MELATONIN 5 MG TABLETS PO SCH (22:54)
[2019-10-28] MEDS: THIAMINE HCL 100 MG TABLET (FP) PO SCH (22:55)
[2019-10-29] MEDS: hydrOXYzine PAMOATE 25 MG CAPSULE (FP) PO SCH ×5 (08:03→22:25)
[2019-10-29] MEDS: chlordiazePOXIDE HCL 25 MG CAPSULE PO SCH ×4 (08:03→22:25)
--- NOTE | 2019-10-29 09:25 | PN ---
S CIWA - CIWA Score Nausea/Vomitin-No Nausea/No Vomiting Muscle Tremors: None Anxiety: 1-Mildly Anxious Agitation: 0-Normal Activity Paroxysmal Sweats: No Perspiration Orientation: 0-Oriented Tacttile Disturbances: 0-None Auditory Disturbances: 2-Mild Harshness/Frighten Visual Disturbances: 0-None Headache: 3-Moderate CIWA-Ar Total Score: 6 BHS Progress Note (SOAP) Subjective: C/o holocephalic headache, grades 8/10, asking for Medhat Wilkins for arthritic knees and hands Objective: 10/29/19 09:22 PE Gnl: WDWN, in bed, in no distress MS: nl mentation Motor: moves limbs well Coord: nl 10/29/19 09:23 Laboratory Tests 10/28/19 10/28/19 10/28/19 12:00 12:00 12:00 WBC 11.7 H RBC 4.97 Hgb 13.6 Hct 42.0 MCV 84.6 MCH 27.3 MCHC 32.3 RDW 17.6 H Plt Count 182 D MPV 9.3 Sodium 142 Potassium 4.1 Chloride 105 Carbon Dioxide 28 Anion Gap 9 BUN 17.4 Creatinine 1.1 Est GFR (CKD-EPI)AfAm 84.12 Est GFR (CKD-EPI)NonAf 72.58 Random Glucose 85 Calcium 8.4 L Total Bilirubin 0.7 AST 29 ALT 37 Alkaline Phosphatase 69 Total Protein 7.2 Albumin 4.0 Syphilis Serology Reactive A* Home Medication List Medication Instructions Recorded Confirmed Type Albuterol Sulfate Inhaler - 2 inh PO Q4H PRN 10/28/19 10/28/19 History [Ventolin Hfa Inhaler -] Active Medications Generic Name Dose Route Start Last Admin Trade Name Freq PRN Reason Stop Dose Admin Acetaminophen 650 mg 10/28/19 12:09 Tylenol - PO Q6H PRN PAIN LEVEL 4 - 6 Acetaminophen 650 mg 10/28/19 12:09 Tylenol - PO Q6H PRN FEVER Al Hydroxide/Mg Hydroxide 30 ml 10/28/19 12:09 Mylanta Oral Suspension - PO Q6H PRN DYSPEPSIA Albuterol Sulfate 1 puff 10/28/19 12:08 Ventolin Hfa Inhaler - IH Q4H PRN ASTHMA Bismuth Subsalicylate 524 mg 10/28/19 12:09 Pepto-Bismol - PO Q1H PRN DIARRHEA Chlordiazepoxide HCl 50 mg 10/28/19 17:00 10/29/19 08:03 Librium - PO 10/29/19 23:01 Not Given [id number] JAMES Chlordiazepoxide HCl 25 mg 10/30/19 05:00 Librium - PO 10/30/19 23:01 [id number] JAMES Chlordiazepoxide HCl 25 mg 10/28/19 12:09 Librium - PO 10/30/19 23:59 Q4H PRN WITHDRAWAL(CONT SUBST) Chlordiazepoxide HCl 10 mg 10/31/19 05:00 Librium - PO 10/31/19 23:01 [id number] JAMES Chlordiazepoxide HCl 10 mg 11/01/19 05:00 Librium - PO 11/01/19 17:01 Q12H JAMES Chlordiazepoxide HCl 10 mg 10/31/19 00:00 Librium - PO 11/01/19 00:00 Q4H PRN WITHDRAWAL(CONT SUBST) Chlordiazepoxide HCl 10 mg 11/02/19 05:00 Librium - PO 11/02/19 05:01 ONCE@0500 ONE Eucalyptus/Menthol/Phenol/Sorbitol 1 each 10/28/19 12:09 Cepastat Lozenge - MM 11/03/19 12:09 Q4H PRN SORE THROAT Hydroxyzine Pamoate 25 mg 10/28/19 14:00 10/29/19 08:03 Vistaril - PO 11/03/19 12:09 Not Given Q4HWA [facility] Ibuprofen 400 mg 10/28/19 12:09 Motrin - PO Q6H PRN PAIN LEVEL 1 - 3 Magnesium Citrate 300 ml 10/28/19 12:09 Citroma - PO Q48H PRN CONSTIPATION Magnesium Hydroxide 30 ml 10/28/19 12:09 Milk Of Magnesia - PO PRN PRN CONSTIPATION Melatonin 5 mg 10/28/19 22:00 10/28/19 22:54 Melatonin PO Not Given HS [facility] Methocarbamol 500 mg 10/28/19 12:09 Robaxin - PO 11/03/19 12:09 Q6H PRN MUSCLE SPASMS Nicotine 7 mg 10/29/19 10:00 Nicoderm Patch - TD DAILY [facility] Nicotine Polacrilex 2 mg 10/28/19 12:09 Nicorette Gum - BUC Q2H PRN NICOTINE REPLACEMENT RX Ondansetron HCl 4 mg 10/28/19 12:09 Zofran Odt - SL Q8H PRN Nausea/Vomiting Multivit/Folic Acid/Iron 1 tab 10/29/19 10:00 Vitamins (Sjr) - PO DAILY JAMES Thiamine HCl 100 mg 10/28/19 22:00 10/28/19 22:55 Vitamin B1 - PO 100 mg HS JAMES Administration Vital Signs Temperature 97.5 F L 10/29/19 06:10 Pulse Rate 68 10/29/19 06:10 Respiratory Rate 16 10/29/19 06:10 Blood Pressure 103/68 10/29/19 06:10 O2 Sat by Pulse Oximetry (%) 95 10/29/19 06:10 Assessment: 10/29/19 09:23 1. Alcohol withdrawal, uncomplicated 2. Arthritis Plan: 1. Librium detox protocol, projected completion on 11/01 2. Will add Bengay for arthritic complaints. 3. Treated for syphilis last admission
[2019-10-29] MEDS: NICOTINE 7 MG/24 HOURS TOPICAL PATCH TD SCH (11:32)
[2019-10-29] MEDS: PRENATAL VITAMINS W/ FOLIC ACID TABLET (FP) PO SCH (11:32)
[2019-10-29] MEDS: METHYL SALICYLATE/MENTHOL OINT 30 GM TUBE TP SCH ×2 (11:35→22:25)
[2019-10-29] MEDS: MELATONIN 5 MG TABLETS PO SCH (22:24)
[2019-10-29] MEDS: THIAMINE HCL 100 MG TABLET (FP) PO SCH (22:25)
[2019-10-30] MEDS: hydrOXYzine PAMOATE 25 MG CAPSULE (FP) PO SCH ×4 (07:02→23:35)
[2019-10-30] MEDS: chlordiazePOXIDE HCL 25 MG CAPSULE PO SCH ×4 (07:02→23:35)
[2019-10-30] MEDS: PRENATAL VITAMINS W/ FOLIC ACID TABLET (FP) PO SCH (11:15)
[2019-10-30] MEDS: NICOTINE 7 MG/24 HOURS TOPICAL PATCH TD SCH (11:16)
[2019-10-30] MEDS: METHYL SALICYLATE/MENTHOL OINT 30 GM TUBE TP SCH ×2 (11:16→23:36)
--- NOTE | 2019-10-30 11:58 | PN ---
S CIWA - CIWA Score Nausea/Vomitin-No Nausea/No Vomiting Muscle Tremors: None Anxiety: 2 Agitation: 0-Normal Activity Paroxysmal Sweats: 2 Orientation: 0-Oriented Tacttile Disturbances: 0-None Auditory Disturbances: 0-None Visual Disturbances: 0-None Headache: 2-Mild CIWA-Ar Total Score: 6 BHS Progress Note (SOAP) Subjective: c/o headache, anxiety, and sweats. Objective: 10/30/19 11:57 Vital Signs 10/30/19 10/30/19 05:52 08:55 Temperature 96.9 F L 97.3 F L Pulse Rate 67 67 Respiratory 18 20 Rate Blood Pressure 96/73 113/71 O2 Sat by Pulse 95 Oximetry (%) Laboratory Last Values WBC 11.7 K/mm3 (4.0-10.0) H 10/28/19 12:00 RBC 4.97 M/mm3 (4.00-5.60) 10/28/19 12:00 Hgb 13.6 GM/dL (11.7-16.9) 10/28/19 12:00 Hct 42.0 % (35.4-49) 10/28/19 12:00 MCV 84.6 fl (80-96) 10/28/19 12:00 MCH 27.3 pg (25.7-33.7) 10/28/19 12:00 MCHC 32.3 g/dl (32.0-35.9) 10/28/19 12:00 RDW 17.6 % (11.9-15.9) H 10/28/19 12:00 Plt Count 182 K/MM3 (134-434) D 10/28/19 12:00 MPV 9.3 fl (7.5-11.1) 10/28/19 12:00 Sodium 142 mmol/L (136-145) 10/28/19 12:00 Potassium 4.1 mmol/L (3.5-5.1) 10/28/19 12:00 Chloride 105 mmol/L (98-107) 10/28/19 12:00 Carbon Dioxide 28 mmol/L (21-32) 10/28/19 12:00 Anion Gap 9 MMOL/L (8-16) 10/28/19 12:00 BUN 17.4 mg/dL (7-18) 10/28/19 12:00 Creatinine 1.1 mg/dL (0.55-1.3) 10/28/19 12:00 Est GFR (CKD-EPI)AfAm 84.12 10/28/19 12:00 Est GFR (CKD-EPI)NonAf 72.58 10/28/19 12:00 Random Glucose 85 mg/dL (74-106) 10/28/19 12:00 Calcium 8.4 mg/dL (8.5-10.1) L 10/28/19 12:00 Total Bilirubin 0.7 mg/dL (0.2-1) 10/28/19 12:00 AST 29 U/L (15-37) 10/28/19 12:00 ALT 37 U/L (13-61) 10/28/19 12:00 Alkaline Phosphatase 69 U/L (45-117) 10/28/19 12:00 Total Protein 7.2 g/dl (6.4-8.2) 10/28/19 12:00 Albumin 4.0 g/dl (3.4-5.0) 10/28/19 12:00 Syphilis Serology Reactive (NONREACTIVE) A* 10/28/19 12:00 RPR Titer Reactive 1:1 (NONREACTIVE) H 10/28/19 12:00 COVID-19 (ROSEANNE) Not detected (Not Detected) 10/28/19 14:00 Labs noted. Assessment: 10/30/19 11:57 AOX3, in no acute respiratory distress. Full ROM, ambulating in the unit. Withdrawal symptoms. Plan: continue detox.
[2019-10-30] MEDS: MELATONIN 5 MG TABLETS PO SCH (23:35)
[2019-10-30] MEDS: THIAMINE HCL 100 MG TABLET (FP) PO SCH (23:35)
[2019-10-31] MEDS ORDERED: chlordiazePOXIDE HCL 10 MG CAPSULE PO PRN
[2019-10-31] MEDS: hydrOXYzine PAMOATE 25 MG CAPSULE (FP) PO SCH ×4 (07:18→18:59)
[2019-10-31] MEDS: chlordiazePOXIDE HCL 10 MG CAPSULE PO SCH ×3 (07:19→18:59)
[2019-10-31] MEDS: PRENATAL VITAMINS W/ FOLIC ACID TABLET (FP) PO SCH (10:56)
[2019-10-31] MEDS: NICOTINE 7 MG/24 HOURS TOPICAL PATCH TD SCH (10:56)
[2019-10-31] MEDS: METHYL SALICYLATE/MENTHOL OINT 30 GM TUBE TP SCH (10:57)
[2019-10-31] MEDS ORDERED: ACETAMINOPHEN 325 MG TABLET (FP) PO ONE (12:47)
--- NOTE | 2019-10-31 12:50 | PN ---
S CIWA - CIWA Score Nausea/Vomitin-Mild Nausea/No Vomiting Muscle Tremors: 1-None Visible, but Rand Anxiety: 1-Mildly Anxious Agitation: 0-Normal Activity Paroxysmal Sweats: No Perspiration Orientation: 0-Oriented Tacttile Disturbances: 1-Very Mild Itch/Numbness Auditory Disturbances: 0-None Visual Disturbances: 0-None Headache: 1-Very Mild CIWA-Ar Total Score: 5 BHS Progress Note (SOAP) Subjective: 59 years old male was admitted on 10/28/19 for alcohol withdrawal sx management treating with librium detox regiment ate breakfast in room resting in bed general body aches and headache 05/27 tylenal 650mg po xz 1 Objective: 10/31/19 12:50 Vital Signs - 24 hr 10/30/19 10/30/19 10/31/19 17:04 21:10 05:45 Temperature 97.3 F L 96.9 F L 97.5 F L Pulse Rate 66 75 86 Respiratory 18 18 18 Rate Blood Pressure 95/66 109/61 98/68 O2 Sat by Pulse 95 96 Oximetry (%) 10/31/19 09:01 Temperature 97.5 F L Pulse Rate 82 Respiratory 20 Rate Blood Pressure 114/63 O2 Sat by Pulse Oximetry (%) Laboratory Tests 10/28/19 10/28/19 10/28/19 12:00 12:00 12:00 WBC 11.7 H RBC 4.97 Hgb 13.6 Hct 42.0 MCV 84.6 MCH 27.3 MCHC 32.3 RDW 17.6 H Plt Count 182 D MPV 9.3 Sodium 142 Potassium 4.1 Chloride 105 Carbon Dioxide 28 Anion Gap 9 BUN 17.4 Creatinine 1.1 Est GFR (CKD-EPI)AfAm 84.12 Est GFR (CKD-EPI)NonAf 72.58 Random Glucose 85 Calcium 8.4 L Total Bilirubin 0.7 AST 29 ALT 37 Alkaline Phosphatase 69 Total Protein 7.2 Albumin 4.0 Syphilis Serology Reactive A* RPR Titer COVID-19 (ROSEANNE) 10/28/19 10/28/19 12:00 14:00 WBC RBC Hgb Hct MCV MCH MCHC RDW Plt Count MPV Sodium Potassium Chloride Carbon Dioxide Anion Gap BUN Creatinine Est GFR (CKD-EPI)AfAm Est GFR (CKD-EPI)NonAf Random Glucose Calcium Total Bilirubin AST ALT Alkaline Phosphatase Total Protein Albumin Syphilis Serology RPR Titer Reactive 1:1 H COVID-19 (ROSEANNE) Not detected 10/31/19 12:52 syphilis contacted treated by history Assessment: 10/31/19 12:53 alcohol withdrawal Plan: librium regiment
[2019-11-01] MEDS: MELATONIN 5 MG TABLETS PO SCH ×2 (00:06→22:55)
[2019-11-01] MEDS: hydrOXYzine PAMOATE 25 MG CAPSULE (FP) PO SCH ×6 (00:06→22:55)
[2019-11-01] MEDS: METHYL SALICYLATE/MENTHOL OINT 30 GM TUBE TP SCH ×3 (00:06→22:55)
[2019-11-01] MEDS: THIAMINE HCL 100 MG TABLET (FP) PO SCH ×2 (00:06→22:55)
[2019-11-01] MEDS: chlordiazePOXIDE HCL 10 MG CAPSULE PO SCH ×3 (00:06→18:38)
[2019-11-01] MEDS: PRENATAL VITAMINS W/ FOLIC ACID TABLET (FP) PO SCH (09:46)
[2019-11-01] MEDS: NICOTINE 7 MG/24 HOURS TOPICAL PATCH TD SCH (09:46)
--- NOTE | 2019-11-01 13:31 | PN ---
S CIWA - CIWA Score Nausea/Vomitin-No Nausea/No Vomiting Muscle Tremors: 1-None Visible, but [place] Anxiety: 1-Mildly Anxious Agitation: 0-Normal Activity Paroxysmal Sweats: No Perspiration Orientation: 0-Oriented Tacttile Disturbances: 0-None Auditory Disturbances: 0-None Visual Disturbances: 0-None Headache: 1-Very Mild CIWA-Ar Total Score: 3 BHS Progress Note (SOAP) Subjective: 59 years old male was admitted on 10/28/19 for alcohol withdrawal sx management treating with librium detox regiment feels better today ambulating with cane slow steady less tremor mild anxiety Objective: 11/01/19 13:33 Vital Signs - 24 hr 10/31/19 10/31/19 11/01/19 17:10 21:07 06:17 Temperature 97.8 F 97.1 F L 97.1 F L Pulse Rate 70 84 70 Respiratory 20 18 16 Rate Blood Pressure 100/70 97/65 99/52 L O2 Sat by Pulse 95 97 Oximetry (%) Laboratory Tests 10/28/19 10/28/19 10/28/19 12:00 12:00 12:00 WBC 11.7 H RBC 4.97 Hgb 13.6 Hct 42.0 MCV 84.6 MCH 27.3 MCHC 32.3 RDW 17.6 H Plt Count 182 D MPV 9.3 Sodium 142 Potassium 4.1 Chloride 105 Carbon Dioxide 28 Anion Gap 9 BUN 17.4 Creatinine 1.1 Est GFR (CKD-EPI)AfAm 84.12 Est GFR (CKD-EPI)NonAf 72.58 Random Glucose 85 Calcium 8.4 L Total Bilirubin 0.7 AST 29 ALT 37 Alkaline Phosphatase 69 Total Protein 7.2 Albumin 4.0 Syphilis Serology Reactive A* RPR Titer COVID-19 (ROSEANNE) 10/28/19 10/28/19 12:00 14:00 WBC RBC Hgb Hct MCV MCH MCHC RDW Plt Count MPV Sodium Potassium Chloride Carbon Dioxide Anion Gap BUN Creatinine Est GFR (CKD-EPI)AfAm Est GFR (CKD-EPI)NonAf Random Glucose Calcium Total Bilirubin AST ALT Alkaline Phosphatase Total Protein Albumin Syphilis Serology RPR Titer Reactive 1:1 H COVID-19 (ROSEANNE) Not detected syphilis contacted treated 11/01/19 13:34 Assessment: 11/01/19 13:34 alcohol withdrawal Plan: librium regiment
[2019-11-02] MEDS ORDERED: chlordiazePOXIDE HCL 10 MG CAPSULE PO ONE (05:00)
[2019-11-02 06:02] VITALS: TEMP 97.1
[2019-11-02] MEDS: hydrOXYzine PAMOATE 25 MG CAPSULE (FP) PO SCH (07:31)
[2019-11-02 09:13] VITALS: BP 107/69; PULSE 68
--- NOTE | 2019-11-02 13:24 | DS ---
[facility] Detox Discharge Summary Admission Date: 10/28/19 Discharge Date: 11/02/19 - History Present History: Alcohol Dependence Additional Comments: 59 YEARS OLD MALE WAS ADMITTED ON 10/28/19 FOR ALCOHOL WITHDRAWAL SX MANAGEMENT TREATED WITH LIBRIUM DETOX REGIMENT MR CASTELLANO HAS COMPLETED THE LIBRIUM REGIMENT AND IS TOLERATED WELL General Appearance: Yes: No Apparent Distress, Nourished, Appropriately Dressed HEENTM: Yes: EOMI, Hearing grossly Normal, Normocephalic, Normal Voice Respiratory: Yes: Lungs Clear, No Respiratory Distress, No Accessory Muscle Use Neck: Yes: Within Normal Limits Breast: Yes: Breast Exam Deferred Cardiology: Yes: Regular Rhythm, Regular Rate Abdominal: Yes: Normal Bowel Sounds, Non Tender, Soft, Protuberent Genitourinary: Yes: Other (deferred) Back: Yes: Normal Inspection Musculoskeletal: Yes: Gait Steady, Other (with shoulder elevation audible click heard from region of cervical spine) Extremities: Yes: Non-Tender Neurological: Yes: Alert, Normal Response Integumentary: Yes: Other (1" scab left knee, multiple scars on knees and shins s/p falls) Pertinent Past History: TIME FOR DISCHARGE 34 MINUTES - Physical Exam Results Vital Signs: Vital Signs Temperature 97.1 F L 11/02/19 08:38 Pulse Rate 68 11/02/19 08:38 Respiratory Rate 20 11/02/19 08:38 Blood Pressure 107/69 11/02/19 08:38 O2 Sat by Pulse Oximetry (%) 97 11/02/19 06:01 Pertinent Admission Physical Exam Findings: ALCOHOL WITHDRAWAL Vital Signs - 24 hr 11/01/19 11/01/19 11/02/19 16:50 20:33 06:01 Temperature 97.0 F L 97.8 F 97.1 F L Pulse Rate 65 67 73 Respiratory 16 16 18 Rate Blood Pressure 109/67 95/60 99/61 O2 Sat by Pulse 96 97 Oximetry (%) 11/02/19 08:38 Temperature 97.1 F L Pulse Rate 68 Respiratory 20 Rate Blood Pressure 107/69 O2 Sat by Pulse Oximetry (%) Laboratory Tests 10/28/19 10/28/19 10/28/19 12:00 12:00 12:00 WBC 11.7 H RBC 4.97 Hgb 13.6 Hct 42.0 MCV 84.6 MCH 27.3 MCHC 32.3 RDW 17.6 H Plt Count 182 D MPV 9.3 Sodium 142 Potassium 4.1 Chloride 105 Carbon Dioxide 28 Anion Gap 9 BUN 17.4 Creatinine 1.1 Est GFR (CKD-EPI)AfAm 84.12 Est GFR (CKD-EPI)NonAf 72.58 Random Glucose 85 Calcium 8.4 L Total Bilirubin 0.7 AST 29 ALT 37 Alkaline Phosphatase 69 Total Protein 7.2 Albumin 4.0 Syphilis Serology Reactive A* RPR Titer COVID-19 (ROSEANNE) 10/28/19 10/28/19 12:00 14:00 WBC RBC Hgb Hct MCV MCH MCHC RDW Plt Count MPV Sodium Potassium Chloride Carbon Dioxide Anion Gap BUN Creatinine Est GFR (CKD-EPI)AfAm Est GFR (CKD-EPI)NonAf Random Glucose Calcium Total Bilirubin AST ALT Alkaline Phosphatase Total Protein Albumin Syphilis Serology RPR Titer Reactive 1:1 H COVID-19 (ROSEANNE) Not detected SYPHILIS CONTACTED TREATED - Treatment Hospital Course: Detox Protocol Followed, Detoxed Safely, Responded well, Discharged Condition Good, Rehab Referral Accepted Patient has Accepted a Rehab Referral to: [facility] - Medication Discharge Medications: Ambulatory Orders Albuterol Sulfate Inhaler - [Ventolin HFA Inhaler -] 2 inh PO Q4H PRN 10/28/19 - Diagnosis (1) Hypertension Status: Chronic Qualifiers: Hypertension type: essential hypertension Qualified Code(s): I10 - Essential (primary) hypertension (2) Syphilis contact, treated Status: Chronic (3) Alcohol dependence with uncomplicated withdrawal Status: Acute (4) Asthma Status: Chronic Qualifiers: Asthma severity: mild Asthma persistence: intermittent Asthma complication type: with status asthmaticus Qualified Code(s): J45.22 - Mild intermittent asthma with status asthmaticus (5) COPD (chronic obstructive pulmonary disease) Status: Chronic Qualifiers: Emphysema type: unspecified (6) Nicotine dependence Status: Acute Qualifiers: Nicotine product type: cigarettes Substance use status: in withdrawal Qualified Code(s): F17.213 - Nicotine dependence, cigarettes, with withdrawal - AMA Did Patient Leave Against Medical Advice: No CIWA Score - CIWA Score Nausea/Vomitin-No Nausea/No Vomiting Muscle Tremors: 1-None Visible, but [place] Anxiety: 0-No Anxiety, at Ease Agitation: 0-Normal Activity Paroxysmal Sweats: No Perspiration Orientation: 0-Oriented Tacttile Disturbances: 0-None Auditory Disturbances: 0-None Visual Disturbances: 0-None Headache: 1-Very Mild CIWA-Ar Total Score: 2
== END 2019-11-02 10:12 | disposition home or self-care (01) | DRG 775 ==
LOC: YASAS 08:59 → Y3N 11:56
PROVIDERS: ADMIT Allergy & Immunology; ATTEND Allergy & Immunology
PROC: HZ2ZZZZ Detoxification Services for Substance Abuse Treatment (ICD-10-PCS; principal; 2019-10-28)
DX: F10.230 Alcohol dependence with withdrawal, uncomplicated (principal); F12.20 Cannabis dependence, uncomplicated; F17.213 Nicotine dependence, cigarettes, with withdrawal; I10 Essential (primary) hypertension; J44.9 Chronic obstructive pulmonary disease, unspecified; M17.0 Bilateral primary osteoarthritis of knee; M19.041 Primary osteoarthritis, right hand; M19.042 Primary osteoarthritis, left hand; Z20.2 Contact with and (suspected) exposure to infections with a predominantly sexual mode of transmission; Z86.19 Personal history of other infectious and parasitic diseases; Z99.89 Dependence on other enabling machines and devices; Z91.81 History of falling; Z88.0 Allergy status to penicillin; Z91.018 Allergy to other foods
CPT/HCPCS: 36415; 80053; 85027; 86593; 86780; U0003

== ENCOUNTER 2021-01-17 10:53 | Inpatient (IN) | payer OTHER ==
[2021-01-17 12:20] VITALS: BMI 26.4
[2021-01-17] MEDS ORDERED: P-EPHED 60MG/TRIPROLIDI 2.5MG TABLET PO PRN (12:20)
[2021-01-17] MEDS ORDERED: guaiFENesin 200 MG/10 ML 10 ML UNIT-DOSE CUPS PO PRN (12:20)
[2021-01-17] MEDS ORDERED: MAG HYDROX/AL HYDROX/SIMETH 30 ML UNIT-DOSE CUP PO PRN (12:20)
[2021-01-17] MEDS ORDERED: MAGNESIUM HYDROX 2400MG/30ML ORAL SUSPENSION 30 ML CUP PO PRN (12:20)
[2021-01-17] MEDS ORDERED: LOPERAMIDE HCL 2 MG CAPSULE PO PRN (12:20)
[2021-01-17] MEDS ORDERED: IBUPROFEN 400 MG TABLET (FP) PO PRN (12:20)
[2021-01-17] MEDS ORDERED: ACETAMINOPHEN 325 MG TABLET (FP) PO PRN (12:20)
[2021-01-17] MEDS ORDERED: NICOTINE 10 MG CARTRIDGE (INHALER) IH PRN (12:20)
[2021-01-17] MEDS ORDERED: MAGNESIUM CITRATE 300 ML BOTTLE PO PRN (12:20)
[2021-01-17] MEDS ORDERED: NICOTINE 7 MG/24 HOURS TOPICAL PATCH TD SCH (13:00)
[2021-01-17] MEDS ORDERED: PRENATAL VITAMINS W/ FOLIC ACID TABLET (FP) PO SCH (13:00)
[2021-01-17] MEDS ORDERED: TUBERCULIN PPD 5 TU/0.1ML VIAL ID ONE (14:26)
[2021-01-17] MEDS: hydrOXYzine PAMOATE 25 MG CAPSULE (FP) PO SCH ×3 (14:46→22:37)
[2021-01-17 16:46] LABS: HEMATOCRIT 39.1 % (35.4-49); HEMOGLOBIN 12.6 GM/dL (11.7-16.9); MCH 24.8 pg (25.7-33.7); MCHC 32.2 g/dl (32.0-35.9); MEAN CELL VOLUME 77.2 fl (80-96); MEAN PLT VOLUME 8.9 fl (7.5-11.1); PLATELET COUNT 334 10^3/uL (134-434); RBC 5.06 M/mm3 (4.00-5.60); RDW 15.9 % (11.9-15.9); WHITE BLOOD COUNT 8.4 K/mm3 (4.0-10.0)
[2021-01-17 16:51] LABS: ALBUMIN 3.6 g/dl (3.4-5.0); BLOOD UREA NITROGEN 19.7 mg/dL (7-18)
[2021-01-17 16:54] LABS: CREATININE 1.3 mg/dL (0.55-1.3)
[2021-01-17 16:56] LABS: BILIRUBIN,TOTAL 0.7 mg/dL (0.2-1); TOT PROT 7.2 g/dl (6.4-8.2)
[2021-01-17 17:42] LABS: SYPHILIS W/ RPR CONF REACTIVE (NONREACTIVE)
[2021-01-17 20:13] VITALS: BP 113/75; PULSE 145; TEMP 97.3
[2021-01-17] MEDS ORDERED: THIAMINE HCL 100 MG TABLET (FP) PO SCH (22:00)
[2021-01-17] MEDS ORDERED: MELATONIN 5 MG TABLETS PO SCH (22:00)
== END 2021-01-17 20:25 | disposition short-term general hospital (02) | DRG 772 ==
LOC: YASAS 10:53 → Y5N 12:35
PROVIDERS: ADMIT Allergy & Immunology; ATTEND Allergy & Immunology
PROC: HZ42ZZZ Group Counseling for Substance Abuse Treatment, Cognitive-Behavioral (ICD-10-PCS; principal; 2021-01-17)
DX: F10.20 Alcohol dependence, uncomplicated (principal); F17.201 Nicotine dependence, unspecified, in remission; I10 Essential (primary) hypertension; R00.0 Tachycardia, unspecified; J44.9 Chronic obstructive pulmonary disease, unspecified; J45.20 Mild intermittent asthma, uncomplicated; R76.8 Other specified abnormal immunological findings in serum; M17.0 Bilateral primary osteoarthritis of knee; Z88.0 Allergy status to penicillin; Z91.018 Allergy to other foods; Z86.19 Personal history of other infectious and parasitic diseases
CPT/HCPCS: 36415; 80053; 85027; 86593; 86780; 86803; 87811; 93005; 93010